=== PATIENT | male | born 1940 | race Caucasian/White ===

== ENCOUNTER 2019-09-28 06:54 | Day surgery (SDC) | payer OTHER ==
[~2019-09-28] VITALS: Ht 165.1 cm; Wt 78.9 kg
[~2019-09-28 06:54] MED LIST: AMLO5TAB15 PO; DOXA4TAB5 PO; LISI-646 PO; SIMV-8 PO; WARF5TAB71 PO
[2019-09-28] MEDS ORDERED: LIDOCAINE 2%HCL (LOCAL ANESTH.) INJ 20ML MDV ONE (07:29)
[2019-09-28] MEDS ORDERED: IODIXANOL 320MG/ML 100ML BTL IV ONE (07:29)
[2019-09-28] MEDS ORDERED: diphenhdrAMINE HCL 50 MG/1 ML VL IV ONE (07:30)
[2019-09-28] MEDS ORDERED: LIDOCAINE VISCOUS 2% 15ML UD PO ONE (07:30)
[2019-09-28] MEDS ORDERED: fentaNYL CITRATE 100 MCG/2 ML VL IV ONE (07:30)
[2019-09-28] MEDS ORDERED: MIDAZOLAM HCL 1MG/1ML-2 ML VIAL IV ONE (07:30)
[2019-09-28] MEDS ORDERED: VERAPAMIL 2.5MG/ML INJ 2ML VIAL IV ONE (08:44)
[2019-09-28] MEDS ORDERED: HEPARIN SODIUM (PORCINE) 5000 UNITS/ML 1ML VIAL ONE (08:44)
[2019-09-28] MEDS ORDERED: ANGIOMAX 250 MG VIAL IV ONE (08:56)
[2019-09-28] MEDS ORDERED: SODIUM CHL 0.9% 0 ML ONE (08:56)
== END 2019-09-28 11:24 | disposition home or self-care (01) ==
LOC: CATH 06:54
PROVIDERS: ATTEND Internal Medicine
DX: I08.0 Rheumatic disorders of both mitral and aortic valves (principal); I48.91 Unspecified atrial fibrillation; I25.10 Atherosclerotic heart disease of native coronary artery without angina pectoris; M19.90 Unspecified osteoarthritis, unspecified site; E78.00 Pure hypercholesterolemia, unspecified; I49.9 Cardiac arrhythmia, unspecified; I10 Essential (primary) hypertension; Z79.01 Long term (current) use of anticoagulants; Z88.0 Allergy status to penicillin; Z79.899 Other long term (current) drug therapy; Z87.891 Personal history of nicotine dependence
CPT/HCPCS: 93312; 93454; C1769; C1894; J1200; J1644; J2250; J3010; Q9967; 99152

== ENCOUNTER 2024-10-19 15:22 | Inpatient (IN) | payer OTHER ==
[~2024-10-19] VITALS: Ht 167.6 cm; Wt 75.1 kg
[~2024-10-19 15:22] MED LIST changes: +AMLO1TAB22 PO; -AMLO5TAB15 PO; -DOXA4TAB5 PO; +DOXA4TAB83 PO; -LISI-646 PO; +LISI20TA56 PO; -SIMV-8 PO; +SIMV20TA20 PO; +WARF-66 PO; -WARF5TAB71 PO
--- NOTE | 2024-10-19 16:04 | ECG ---
[facility] Test Date: 2024-10-19 Test Time: 15:55:06 Pat Name: JEFFREY MORGAN Department: ER Room: 0221T Gender: M It Network Administrator: LIVIA : 1940 Requested By: CARON COLE Order Number: [id number] Reading MD: Judson Wallace Measurements Intervals [place] Rate: 81 P: 0 AK: 0 QRS: 105 QRSD: 139 T: -12 QT: 428 QTc: 497 Interpretive Statements Atrial fibrillation RBBB and LPFB Borderline ST depression, lateral leads Borderline ST elevation, anterior leads Electronically Signed On 10-24-2024 17:11:13 PST by Judson Wallace Please click the below link to view image of tracing.
[2024-10-19 16:53] LABS: Basophils # (auto) 0 10 ^3/uL (0-0.2); Basophils % (auto) 0.1 % (0.0-2.0); Hemoglobin 8.4 g/dL (13.5-17.5); Monocytes # (auto) 0.5 10 ^3/uL (0-1.3); Nucleated Red Blood Cells % 0.1 %
[2024-10-19 16:57] LABS: Eosinophils # (auto) 0 10 ^3/uL (0-0.8); Eosinophils % (auto) 0.3 % (0.0-7.0); Hematocrit 26.4 % (41.0-53.0); Lymphocytes # (auto) 0.5 10 ^3/uL (0.4-5.4); Lymphocytes % (auto) 4.4 % (10.0-50.0); Mean Corpuscular Hemoglobin 29.1 pg (28.0-32.0); Mean Corpuscular Hgb Conc. 31.6 g/dL (32.0-36.0); Mean Corpuscular Volume 92.1 fL (80.0-100.0); Monocytes % (auto) 4.2 % (0.0-12.0); Neutrophils # (auto) 10.1 10 ^3/uL (1.6-8.6); Platelet Count (auto) 244 10^3/uL (140-450); Red Blood Cells 2.87 10^6/uL (4.5-5.90); Red Cell Distribution Width 15.9 % (11.8-14.3); White Blood Cell 11.2 10^3/uL (4.4-10.8)
[2024-10-19 17:07] LABS: Alanine Aminotransferase 32 U/L (7-40); Albumin 3.4 g/dL (3.2-4.8); Anion Gap 12 (5-15); Aspartate Aminotransferase 32 U/L (13-40); BUN/Creatinine Ratio 15.2 (10.0-20.0); Bilirubin, Total 0.7 mg/dL (0.2-1.0); Calcium 8.7 mg/dL (8.7-10.4); Potassium 3.9 mmol/L (3.5-5.1)
[2024-10-19 17:11] LABS: Alkaline Phosphatase 130 U/L (46-116); Blood Urea Nitrogen 46 mg/dL (9-23); Carbon Dioxide 19 mmol/L (20-31); Chloride 116 mmol/L (98-107); Glucose 109 mg/dL (74-106); Sodium 147 mmol/L (136-145)
[2024-10-19 17:12] LABS: Total Protein 5.7 g/dL (5.7-8.2)
--- NOTE | 2024-10-19 18:35 | ED.PDOC ---
History of Present Illness HPI Comments 83-year-old male brought in by son. Patient states he had emergency appendectomy done at in the [facility] by Dr. Burt. Surgery was on 10/10. Patient was discharged home 10/14. Patient states since the surgery when he goes to urinate he only has dribble urination but also has a urine coming out of the small puncture hole just below his abdomen. Had home health nurse come out today do wound check and they stated he needed to come into the emergency department because the discharge seem to be a urine. Chief Complaint: Wound Check Time Seen by MD: 15:38 Primary Care Provider: NEDA Rosenberg Notes: Nurses Notes Allergies: Coded Allergies: Penicillins (Verified Allergy, Severe, 09/25/19) Home Meds Reported Medications Lisinopril (Lisinopril) 20 Mg Tab, 20 MG PO DAILY for 30 Days, MG 09/25/19 Amlodipine Besylate (Amlodipine Besylate) 5 Mg Tab, 5 MG PO DAILY for 30 Days, MG 09/25/19 Warfarin Sodium (Warfarin Sodium) 5 Mg Tab, 5 MG PO DAILY for 30 Days, MG 09/25/19 Simvastatin (Simvastatin) 20 Mg Tab, 20 MG PO DAILY for 30 Days 09/25/19 Doxazosin Mesylate (Doxazosin Mesylate) 4 Mg Tab, 4 MG PO DAILY, TAB 09/25/19 Information Source: Patient Mode of Arrival: Wheelchair Physical Exam General Appearance: No Apparent Distress, Normal HEENT: Normal ENT Inspection, Pharynx Normal, TMs Normal Neck: Full Range of Motion, Non-Tender, Normal, Normal Inspection Respiratory: Chest Non-Tender, Lungs Clear, No Accessory Muscle Use, No Respiratory Distress, Normal Breath Sounds Cardiovascular: No Edema, No JVD, No Murmur, No Gallop, Normal Peripheral Pulses, Regular Rate/Rhythm Breast Exam: Deferred Gastrointestinal: No Organomegaly, Non Tender, No Pulsatile Mass, Normal Bowel Sounds, Soft Genitalia: Deferred Pelvic: Deferred Rectal: Deferred Extremities: No calf tenderness, Normal capillary refill, Normal inspection, Normal range of motion, Non-tender, No pedal edema Musculoskeletal : Apperance: Normal Neurologic: Alert, web analyst II-XII nml as Tested, No Motor Deficits, Normal Affect, Normal Mood, No Sensory Deficits Cerebellar Function: Normal Reflexes: Normal Skin: Dry, Normal Color, Warm, Wounds (Laparoscopic puncture wound noted on the right lower quadrant abdomen/suprapubic area. Does not appear to have clear yellow/urine discharge.) Lymphatic: No Adenopathy Was a procedure done? Was a procedure done?: No Differential Dx Considerations may include: Postop complications X-Ray, Labs, Meds, VS Vital Signs Date Time Temp Pulse Resp B/P (MAP) Pulse Ox O2 Delivery O2 Flow Rate FiO2 10/19/24 17:47 98.0 71 18 136/82 (100) 99 98.0 10/19/24 15:55 81 10/19/24 15:40 98.4 67 18 116/42 (66) 97 Lab Test 10/19/24 16:19 Range/Units White Blood Count 11.2 H 4.4-10.8 10^3/uL Red Blood Count 2.87 L 4.5-5.90 10^6/uL Hemoglobin 8.4 L 13.5-17.5 g/dL Hematocrit 26.4 L 41.0-53.0 % Mean Corpuscular Volume 92.1 80.0-100.0 fL Mean Corpuscular Hemoglobin 29.1 28.0-32.0 pg Mean Corpuscular Hemoglobin Concent 31.6 L 32.0-36.0 g/dL Red Cell Distribution Width 15.9 H 11.8-14.3 % Platelet Count 244 140-450 10^3/uL Mean Platelet Volume 8.6 6.9-10.8 fL Neutrophils (%) (Auto) 91.0 H 37.0-80.0 % Lymphocytes (%) (Auto) 4.4 L 10.0-50.0 % Monocytes (%) (Auto) 4.2 0.0-12.0 % Eosinophils (%) (Auto) 0.3 0.0-7.0 % Basophils (%) (Auto) 0.1 0.0-2.0 % Neutrophils # (Auto) 10.1 H 1.6-8.6 10 ^3/uL Lymphocytes # (Auto) 0.5 0.4-5.4 10 ^3/uL Monocytes # (Auto) 0.5 0-1.3 10 ^3/uL Eosinophils # (Auto) 0 0-0.8 10 ^3/uL Basophils # (Auto) 0 0-0.2 10 ^3/uL Nucleated Red Blood Cells 0.1 % Sodium Level 147 H 136-145 mmol/L Potassium Level 3.9 3.5-5.1 mmol/L Chloride Level 116 H 98-107 mmol/L Carbon Dioxide Level 19 L 20-31 mmol/L Anion Gap 12 5-15 Blood Urea Nitrogen 46 H 9-23 mg/dL Creatinine 3.02 H 0.700-1.30 mg/dL Glomerular Filtration Rate Calc 20 >90 mL/min BUN/Creatinine Ratio 15.2 10.0-20.0 Serum Glucose 109 H 74-106 mg/dL Calcium Level 8.7 8.7-10.4 mg/dL Total Bilirubin 0.7 0.2-1.0 mg/dL Aspartate Amino Transferase (AST) 32 13-40 U/L Alanine Aminotransferase (ALT) 32 7-40 U/L Alkaline Phosphatase 130 H 46-116 U/L Total Protein 5.7 5.7-8.2 g/dL Albumin 3.4 3.2-4.8 g/dL X-Ray, Labs, Meds, VS Comment Spoke with Dr. Burt, general surgeon, advised to situation, CBC CMP place CT abdomen noncontrast place Dr. Burt states he was spoke with urologist Dr. Reyes, urology consult was placed, patient will be admitted for observation and evaluation by Dr. Reyes tomorrow morning. Moreno catheter to be inserted. Time of 1ST Reevaluation: 18:33 Reevaluation 1ST: Unchanged Patient Education/Counseling: Diagnosis, Treatment Family Education/Counseling: Diagnosis, Treatment Departure 1 Departure Time of Disposition: 18:33 Impression: Primary Impression: Postoperative complication Qualified Codes: N99.89 - Other postprocedural complications and disorders of genitourinary system Disposition: 09 ADMITTED INPATIENT Condition: Fair Critical Care Note Critical Care Time?: No Stability Stability form required: No Heart Score Heart Score: Heart Score Response (Comments) Value History N/A 0 EKG N/A 0 Age N/A 0 Risk Factors N/A 0 Troponin N/A 0 Total 0 CARON COLE Oct 19, 2024 18:35
--- NOTE | 2024-10-19 19:09 | DVH ---
Procedure: CT CT AB PEL WO CON-NO ORAL OR IV 10/19/2024 06:04 PM Indication: post op complications. Status post appendectomy on 10/10/2024 Comparison Study: None Technique: Axial images were obtained and reformatted in coronal and sagittal planes. All CT scans at this medical facility are performed using dose modulation techniques as appropriate t o a performed exam including the following: Automated exposure control was utilized; adjustment of th e MA and/or KV according to patient size; and use of iterative reconstruction technique. CT Dose: CTDI volume is 15 mGy. Dose-length product is 147 mGy*cm FINDINGS: Lower Chest: Small left pleural effusion with mild adjacent compressive atelectasis. Moderate cardiom egaly. Evidence of anemia. An artificial aortic valve is seen. Hepatobiliary: Multiple hepatic cysts measuring up to 19 cm. Intrahepatic ductal dilatation seen in t he left lobe. Slightly nodular liver contour. Few subcentimeter gallstones are seen. No gallbladder w all edema. Spleen: Unremarkable. Pancreas: Unremarkable. Adrenal Glands: Unremarkable. tract: The kidneys are normal in size bilaterally without nephrolithiasis. Multiple bilateral pavan al cysts are seen measuring up to 2.5 cm. Mild bilateral hydronephrosis and left proximal hydroureter . Markedly distended bladder extending to level of umbilicus. GI tract: The stomach is grossly normal in appearance. No evidence of small bowel obstruction. The la rge bowel is unremarkable. The appendix is surgically absent. Lymphatics: No mesenteric, retroperitoneal or periportal lymphadenopathy. Vasculature: Aorta is normal in caliber. Scattered calcified plaques are noted. Pelvic Organs: Severe prostatic hyperplasia, 7.3 cm transverse. Bones/soft tissues: No acute abnormality. Degenerative changes of the lumbar spine noted. Small fat-c ontaining umbilical hernia. Small to moderate amount of air in the subcutaneous tissues of the lower abdomen and pelvis extending to the bilateral inguinal canals. Orthopedic hardware in the right proxi mal femur. Moderate subcutaneous edema in posterior abdominal wall. Other: None. IMPRESSION: 1. Small to moderate amount of soft tissue air in the subcutaneous tissues of the lower abdominal wal l, pelvic wall extending to bilateral inguinal canals pulmonary postsurgical in nature. Recommend cli nical correlation to rule out gas producing infection. No drainable collection is noted. 2. The appendix is surgically absent. No drainable fluid collection seen in the right lower quadrant. Mild mesenteric lymphadenopathy in the right lower quadrant. 3. Severe prostatic hyperplasia. 4. Markedly distended urinary bladder likely due to prostatic hyperplasia. There is bilateral modera te hydronephrosis that could be related to vesicoureteral reflux. 5. Severe intrahepatic ductal dilatation in the left hepatic lobe concerning for an obstructing proce ss. Further evaluation with MRCP recommended. 6. Cholelithiasis. No signs of cholecystitis. 7. CHF small left pleural effusion.
[2024-10-19 20:12] VITALS: PULSE 77; RESP 16; O2SAT 96
[2024-10-19] MEDS: LORazepam 2MG/ML-1ML VIAL IV ONE (20:21)
[2024-10-19] MEDS: cefTRIAXone 1GM/50ML D5W 50 ML IV ONE (20:26)
[2024-10-19] MEDS: LIDOCAINE 2% JELLY 11ml (GLYDO) UR ONE (21:45)
[2024-10-19] MEDS ORDERED: HYDROcodone-ACET 5/325MG TAB PO PRN (22:00)
[2024-10-19] MEDS ORDERED: ONDANSETRON HCL 4 MG/2 ML VIAL IV PRN (22:00)
[2024-10-19] MEDS ORDERED: ACETAMINOPHEN 325 MG TAB PO PRN (22:00)
[2024-10-19] MEDS ORDERED: MORPHINE SULFATE INJ 2 MG/ml SYRG IV PRN ×2 (22:00)
[2024-10-19] MEDS ORDERED: NITROGLYCERIN 0.4 MG SL TAB SL PRN (22:00)
[2024-10-20] VITALS (8 sets, daily range): BP systolic 128–141; BP diastolic 61–86; PULSE 75–89; RESP 16–19; TEMP 98.1–98.7; O2SAT 93–97
--- NOTE | 2024-10-20 01:04 | DVHHP2 ---
LILLIAM LIANG BAY STOCKER 10/20/24 0104: History of Present Illness Reason for Visit: Wound check History of Present Illness 83-year-old male with past medical history of a fib, Cardiac valve replacement, Present to the hospital For a wound check. Patient recently underwent emerging appendectomy on 10/10 And discharge from [facility] [place] [facility] 10/14. Since discharge patient has had difficulty Emptying bladder. Patient seen by home health nurse yesterday Was advised to follow up with surgeon and go to the emergency department for abnormal drainage from incision. At this time the patient is endorsing Lower abdominal discomfort. Denies fevers, chills,Shortness of breath, chest pain, nausea, vomiting. Cardiovascular: AFIB, HTN, hyperipidemia, valve insufficiency Smoke: No ALCOHOL: none Drugs: None Lives: with Family Review of Systems Constitutional: No: Fever, Chills, Sweats, Weakness, Malaise, Other Eyes: No: Pain, Vision change, Conjunctivae inflammation, Eyelid inflammation, Other, Redness ENT: No: Ear pain, Ear discharge, Nose pain, Nose discharge, Nose congestion, Mouth pain, Mouth swelling, Throat pain, Throat swelling, Other Respiratory: No: Cough, Dry, Shortness of breath, SOB with excertion, Wheezing, Hemoptysis, Pleuritic Pain, Sputum, Wheezing, Other Cardiovascular: No: Chest Pain, Palpitations, Orthopnea, Paroxysmal Noc. Dyspnea, Edema, Lt Headedness, Other Gastrointestinal: Abdominal Pain; No: Nausea, Vomiting, Diarrhea, Constipation, Melena, Hematochezia, Other Genitourinary: No Dysuria, No Frequency, No Incontinence, No Hematuria; Retention; No Other Musculoskeletal: No: other, neck pain, shoulder pain, arm pain, back pain, hand pain, leg pain, foot pain Skin: Other (Post surgical incisions); No: Rash, Lesions, Jaundice, Bruising Neurological: No: Weakness, Numbness, Incoordination, Change in speech, Confusion, Seizures, Other Allergies: Coded Allergies: Penicillins (Verified Allergy, Severe, 09/25/19) Medications Current Medications Medications Dose Ordered Sig/Shawna Route Start Time Stop Time Status Last Admin Dose Admin Acetaminophen 650 mg Q6HP PRN PO 10/19/24 22:00 Acetaminophen/ Hydrocodone Bitart 1 tab Q6HPRN PRN PO 10/19/24 22:00 Ondansetron HCl 4 mg Q4HP PRN IV 10/19/24 22:00 Morphine Sulfate 2 mg Q4HPRN PRN IV 10/19/24 22:00 Nitroglycerin 0.4 mg Q5MINP PRN SL 10/19/24 22:00 Morphine Sulfate 2 mg Q30M PRN IV 10/19/24 22:00 Metoprolol Succinate 25 mg DAILY PO 10/20/24 10:00 Exam Vital Signs Vital Signs Date Time Temp Pulse Resp B/P (MAP) Pulse Ox O2 Delivery O2 Flow Rate FiO2 10/19/24 20:12 77 16 96 Room Air* 0 21 10/19/24 20:03 98.4 136/87 (103) 98.4 General Appearance: Alert, Oriented X3, Cooperative, moderate distress HEENT: Atraumatic, PERRLA, EOMI Respiratory: Clear to auscultation, Normal air movement Cardiovascular: Regular rate, Normal S1, Normal S2 Abdominal: Normal bowel sounds, Soft, No tenderness Extremities: No cyanosis, No edema Skin: No rashes Neuro: Normal speech, Strength at 5/5 X4 ext Psych/Mental Status: Mental status NL, Mood NL Labs/Xrays Labs Test 10/19/24 16:19 Range/Units White Blood Count 11.2 H 4.4-10.8 10^3/uL Red Blood Count 2.87 L 4.5-5.90 10^6/uL Hemoglobin 8.4 L 13.5-17.5 g/dL Hematocrit 26.4 L 41.0-53.0 % Mean Corpuscular Volume 92.1 80.0-100.0 fL Mean Corpuscular Hemoglobin 29.1 28.0-32.0 pg Mean Corpuscular Hemoglobin Concent 31.6 L 32.0-36.0 g/dL Red Cell Distribution Width 15.9 H 11.8-14.3 % Platelet Count 244 140-450 10^3/uL Mean Platelet Volume 8.6 6.9-10.8 fL Neutrophils (%) (Auto) 91.0 H 37.0-80.0 % Lymphocytes (%) (Auto) 4.4 L 10.0-50.0 % Monocytes (%) (Auto) 4.2 0.0-12.0 % Eosinophils (%) (Auto) 0.3 0.0-7.0 % Basophils (%) (Auto) 0.1 0.0-2.0 % Neutrophils # (Auto) 10.1 H 1.6-8.6 10 ^3/uL Lymphocytes # (Auto) 0.5 0.4-5.4 10 ^3/uL Monocytes # (Auto) 0.5 0-1.3 10 ^3/uL Eosinophils # (Auto) 0 0-0.8 10 ^3/uL Basophils # (Auto) 0 0-0.2 10 ^3/uL Nucleated Red Blood Cells 0.1 % Sodium Level 147 H 136-145 mmol/L Potassium Level 3.9 3.5-5.1 mmol/L Chloride Level 116 H 98-107 mmol/L Carbon Dioxide Level 19 L 20-31 mmol/L Anion Gap 12 5-15 Blood Urea Nitrogen 46 H 9-23 mg/dL Creatinine 3.02 H 0.700-1.30 mg/dL Glomerular Filtration Rate Calc 20 >90 mL/min BUN/Creatinine Ratio 15.2 10.0-20.0 Serum Glucose 109 H 74-106 mg/dL Calcium Level 8.7 8.7-10.4 mg/dL Total Bilirubin 0.7 0.2-1.0 mg/dL Aspartate Amino Transferase (AST) 32 13-40 U/L Alanine Aminotransferase (ALT) 32 7-40 U/L Alkaline Phosphatase 130 H 46-116 U/L Total Protein 5.7 5.7-8.2 g/dL Albumin 3.4 3.2-4.8 g/dL Assessment/Plan Assessment/Plan Urinary retention secondary to severe prostatic hyperplasia Bilateral moderate hydronephrosis EDWAR on CKD S/p appendectomy 10/10/24 Afib, chronic controlled Plan Admit to telemetry General surgeon consult. Urology consult Nephrology consult. Monitor BMP. Correct electrolytes as needed. needed analgesia / antiemetics Continue home medications. GI ppx protonix / DVT ppx scd Plan discussed with: Patient My Orders Orders - LILLIAM LIANG NP Procedure Category Date Status Time Admit ADMIT 10/19/24 Transmitted 21:50 Code Status CODE 10/19/24 Transmitted 21:50 Vital Signs TYLER 10/19/24 In Process 21:50 Review Orders With TYLER 10/19/24 In Process Adm. 21:50 Encourage Activity As TYLER 10/19/24 In Process Tolerate 21:50 Npo (Nothing By DIET 10/20/24 Transmitted Mouth) Diet Breakfast Oxygen By Face Mask RT 10/19/24 Transmitted 21:50 Acetaminophen Tablet PHA 10/19/24 In Process (Tylenol Tablet) 22:00 Notify Of Changes TYLER 10/19/24 In Process From Base 21:50 Advance Directive TYLER 10/19/24 In Process 21:50 Basic Metabolic Panel LAB 10/20/24 Logged 05:00 Basic Metabolic Panel LAB 10/21/24 Verified 05:00 Basic Metabolic Panel LAB 10/22/24 Verified 05:00 Basic Metabolic Panel LAB 10/23/24 Verified 05:00 Basic Metabolic Panel LAB 10/24/24 Verified 05:00 Complete Blood Count LAB 10/20/24 Logged 05:00 Complete Blood Count LAB 10/21/24 Verified 05:00 Complete Blood Count LAB 10/22/24 Verified 05:00 Complete Blood Count LAB 10/23/24 Verified 05:00 Complete Blood Count LAB 10/24/24 Verified 05:00 Patient Condition ORDERS 10/19/24 Transmitted 21:50 Allergies TYLER 10/19/24 In Process 21:50 Hydrocodone-Acet PHA 10/19/24 In Process 5/325mg Tab (Lima 22:00 Ondansetron Hcl PHA 10/19/24 In Process (Zofran) 22:00 Morphine Sulfate PHA 10/19/24 In Process Injection 22:00 Nitroglycerin PHA 10/19/24 In Process Sublingual (Ntrostat 22:00 Morphine Sulfate PHA 10/19/24 In Process Injection 22:00 Stat Ekg For Chest TYLER 10/19/24 In Process Pain 21:50 Notify Of Changes TYLER 10/19/24 In Process From Base 21:50 Associate Publisher For TYLER 10/19/24 In Process 24 Hours 21:50 Emergency Dysrhythmia TYLER 10/19/24 In Process Protocol 21:50 Rhythm Strips Once TYLER 10/19/24 In Process Every Shift 21:50 Oxygen By Nasal RT 10/19/24 Transmitted Cannula 21:50 * Urology Consult CONS 10/19/24 Transmitted 21:50 PTPTT LAB 10/20/24 Logged 04:00 Metoprolol Xl PHA 10/20/24 In Process Succinate (Toprol Xl) 10:00 Date of Service: Oct 20, 2024 Billing Provider: TEE BUSTOS MD Common Visit Codes: NOT BILLABLE TEE BUSTOS MD 10/20/24 1252: Review of Systems Allergies: Coded Allergies: Penicillins (Verified Allergy, Severe, 09/25/19) Assessment/Plan Assessment/Plan Patient's chart is reviewed and discussed with the nurse practitioner and general surgeon. Patient is seen evaluated and admitted by nurse practitioner this morning. I agree with his evaluation, documentation, assessment and care plan as outlined. Plan discussed with: Patient, LILLIAM Fuller BAY STOCKER Oct 20, 2024 01:04 TEE BUSTOS MD Oct 20, 2024 12:52
[2024-10-20] MEDS ORDERED: MET25T PO (03:34)
--- NOTE | 2024-10-20 05:50 | DVHINCON2 ---
Date of service: Oct 20, 2024 History of Present Illness 83 yo M office pt of mine hx of TAVR, hx of chronic afib, admitted for wound and inability to urinate. kay in place and pt feels well now Past Medical History reviewed Family History: Cerebrovascular accident (CVA) G8 FATHER, Hypertension G8 FATHER, Allergies: Coded Allergies: Penicillins (Verified Allergy, Severe, 09/25/19) Home Meds Reported Medications Metoprolol Tartrate (Lopressor) 25 Mg Tb, 1 TAB PO DAILY for FOR SBP >115 10/20/24 Lisinopril (Lisinopril) 20 Mg Tab, 20 MG PO DAILY for 30 Days, MG 09/25/19 Amlodipine Besylate (Amlodipine Besylate) 5 Mg Tab, 10 MG PO DAILY for 30 Days, MG 09/25/19 Warfarin Sodium (Warfarin Sodium) 5 Mg Tab, 5 MG PO DAILY for 30 Days, MG 09/25/19 Simvastatin (Simvastatin) 20 Mg Tab, 20 MG PO DAILY for 30 Days 09/25/19 Doxazosin Mesylate (Doxazosin Mesylate) 4 Mg Tab, 4 MG PO DAILY, TAB 09/25/19 Current Medications Current Medications Medications (Trade) Dose Ordered Sig/Shawna Route PRN Reason Start Time Stop Time Status Last Admin Acetaminophen (Tylenol Tablet) 650 mg Q6HP PRN PO PAIN SCALE 1-3 OR TEMP>100.4 10/19/24 22:00 Acetaminophen/ Hydrocodone Bitart (Vale 5/325MG Tab) 1 tab Q6HPRN PRN PO MODERATE PAIN (4-6 PAIN SCALE) 10/19/24 22:00 Ondansetron HCl (Zofran) 4 mg Q4HP PRN IV NAUSEA / VOMITING 10/19/24 22:00 Morphine Sulfate 2 mg Q4HPRN PRN IV SEVERE PAIN (7-10 PAIN SCALE) 10/19/24 22:00 Nitroglycerin (Ntrostat Sublingual) 0.4 mg Q5MINP PRN SL FOR CHEST PAIN 10/19/24 22:00 Morphine Sulfate 2 mg Q30M PRN IV FOR CHEST PAIN 10/19/24 22:00 Metoprolol Succinate (Toprol Xl) 25 mg DAILY PO 10/20/24 10:00 10/20/24 01:10 DC Metoprolol Tartrate (Lopressor Tablet) 25 mg DAILY PO 10/20/24 10:00 Review of Systems 10 pt ros otherwise negative Vital Signs Vital Signs Date Time Temp Pulse Resp B/P (MAP) Pulse Ox O2 Delivery O2 Flow Rate FiO2 10/20/24 03:13 81 16 Room Air* 0 21 10/20/24 02:25 99 10/20/24 02:22 97.4 126/61 (82) 97.4 Physical Exam nad s1 s2 irregular ctab soft nt/ wound/ bandaged trivia ledema Labs/Diagnostic Data Labs Test 10/19/24 16:19 Range/Units White Blood Count 11.2 H 4.4-10.8 10^3/uL Red Blood Count 2.87 L 4.5-5.90 10^6/uL Hemoglobin 8.4 L 13.5-17.5 g/dL Hematocrit 26.4 L 41.0-53.0 % Mean Corpuscular Volume 92.1 80.0-100.0 fL Mean Corpuscular Hemoglobin 29.1 28.0-32.0 pg Mean Corpuscular Hemoglobin Concent 31.6 L 32.0-36.0 g/dL Red Cell Distribution Width 15.9 H 11.8-14.3 % Platelet Count 244 140-450 10^3/uL Mean Platelet Volume 8.6 6.9-10.8 fL Neutrophils (%) (Auto) 91.0 H 37.0-80.0 % Lymphocytes (%) (Auto) 4.4 L 10.0-50.0 % Monocytes (%) (Auto) 4.2 0.0-12.0 % Eosinophils (%) (Auto) 0.3 0.0-7.0 % Basophils (%) (Auto) 0.1 0.0-2.0 % Neutrophils # (Auto) 10.1 H 1.6-8.6 10 ^3/uL Lymphocytes # (Auto) 0.5 0.4-5.4 10 ^3/uL Monocytes # (Auto) 0.5 0-1.3 10 ^3/uL Eosinophils # (Auto) 0 0-0.8 10 ^3/uL Basophils # (Auto) 0 0-0.2 10 ^3/uL Nucleated Red Blood Cells 0.1 % Sodium Level 147 H 136-145 mmol/L Potassium Level 3.9 3.5-5.1 mmol/L Chloride Level 116 H 98-107 mmol/L Carbon Dioxide Level 19 L 20-31 mmol/L Anion Gap 12 5-15 Blood Urea Nitrogen 46 H 9-23 mg/dL Creatinine 3.02 H 0.700-1.30 mg/dL Glomerular Filtration Rate Calc 20 >90 mL/min BUN/Creatinine Ratio 15.2 10.0-20.0 Serum Glucose 109 H 74-106 mg/dL Calcium Level 8.7 8.7-10.4 mg/dL Total Bilirubin 0.7 0.2-1.0 mg/dL Aspartate Amino Transferase (AST) 32 13-40 U/L Alanine Aminotransferase (ALT) 32 7-40 U/L Alkaline Phosphatase 130 H 46-116 U/L Total Protein 5.7 5.7-8.2 g/dL Albumin 3.4 3.2-4.8 g/dL Assessment afib hx of tavr obesity postop appy urinary retention /bph Plan/Recommendation cv stable pt had recent cv testing in office resume home meds fu field consultant recs Plan discussed with: Patient AINSLEY LOPEZ MD Oct 20, 2024 05:50
[2024-10-20 06:42] LABS: Potassium 3.8 mmol/L (3.5-5.1)
[2024-10-20 06:43] LABS: Anion Gap 12 (5-15); Calcium 8.7 mg/dL (8.7-10.4)
[2024-10-20 06:48] LABS: BUN/Creatinine Ratio 15.7 (10.0-20.0); Glucose 92 mg/dL (74-106)
[2024-10-20 06:55] LABS: Blood Urea Nitrogen 33 mg/dL (9-23); Carbon Dioxide 19 mmol/L (20-31); Chloride 118 mmol/L (98-107); Sodium 149 mmol/L (136-145)
[2024-10-20 07:00] LABS: INR 1.15 (0.9-1.15); Partial Thromboplastin Time 30.3 SEC (24.5-34.5)
[2024-10-20 07:07] LABS: Basophils # (auto) 0 10 ^3/uL (0-0.2); Basophils % (auto) 0.2 % (0.0-2.0); Eosinophils # (auto) 0.1 10 ^3/uL (0-0.8)
[2024-10-20 07:12] LABS: Lymphocytes # (auto) 0.5 10 ^3/uL (0.4-5.4); Lymphocytes % (auto) 4.9 % (10.0-50.0); Mean Corpuscular Hemoglobin 30.4 pg (28.0-32.0); Mean Corpuscular Hgb Conc. 33.3 g/dL (32.0-36.0); Mean Corpuscular Volume 91.2 fL (80.0-100.0); Monocytes # (auto) 0.6 10 ^3/uL (0-1.3); Monocytes % (auto) 5.9 % (0.0-12.0); Neutrophils # (auto) 9.3 10 ^3/uL (1.6-8.6); Nucleated Red Blood Cells % 0.1 %; Platelet Count (auto) 228 10^3/uL (140-450); Red Blood Cells 2.63 10^6/uL (4.5-5.90); Red Cell Distribution Width 15.7 % (11.8-14.3); White Blood Cell 10.5 10^3/uL (4.4-10.8)
[2024-10-20] MEDS ORDERED: IOTHALAMATE MEGLUMINE INJ 250ML BOT UR ONE (08:59)
--- NOTE | 2024-10-20 09:16 | DVHINCON2 ---
Date of service: Oct 20, 2024 History of Present Illness 83 yo male who underwent lap appy last week emergently for acute appendicitis. The patient had some bleeding from kay and was seen by urologist. Pt had CBI and urine cleared. He was tolerating diet, having bowel movement and was dc home. Yesterday home nurses went for dressing change, found to have clear fluid draining from suprapubic incision. Pt was brought into ER. CT scan revealed massively distended bladder due to obstructing from markedly enlarged prostate, elevated creatinine. Ct scan did not show any free fluid or intraperitoneal fluid, surgical site did not have any abnormalities. Pt has not had any n/v/f/c. He has been passing flatus and having bm. Pt complained of distension and pressure in lower abdomen. Past Medical History valve replacement htn a fib Past Surgical History lap appy tavr Family History: Cerebrovascular accident (CVA) G8 FATHER, Hypertension G8 FATHER, Allergies: Coded Allergies: Penicillins (Verified Allergy, Severe, 09/25/19) Home Meds Reported Medications Metoprolol Tartrate (Lopressor) 25 Mg Tb, 1 TAB PO DAILY for FOR SBP >115 10/20/24 Lisinopril (Lisinopril) 20 Mg Tab, 20 MG PO DAILY for 30 Days, MG 09/25/19 Amlodipine Besylate (Amlodipine Besylate) 5 Mg Tab, 10 MG PO DAILY for 30 Days, MG 09/25/19 Warfarin Sodium (Warfarin Sodium) 5 Mg Tab, 5 MG PO DAILY for 30 Days, MG 09/25/19 Simvastatin (Simvastatin) 20 Mg Tab, 20 MG PO DAILY for 30 Days 09/25/19 Doxazosin Mesylate (Doxazosin Mesylate) 4 Mg Tab, 4 MG PO DAILY, TAB 09/25/19 Current Medications Current Medications Medications (Trade) Dose Ordered Sig/Shawna Route PRN Reason Start Time Stop Time Status Last Admin Acetaminophen (Tylenol Tablet) 650 mg Q6HP PRN PO PAIN SCALE 1-3 OR TEMP>100.4 10/19/24 22:00 Acetaminophen/ Hydrocodone Bitart (Watkins 5/325MG Tab) 1 tab Q6HPRN PRN PO MODERATE PAIN (4-6 PAIN SCALE) 10/19/24 22:00 Ondansetron HCl (Zofran) 4 mg Q4HP PRN IV NAUSEA / VOMITING 10/19/24 22:00 Morphine Sulfate 2 mg Q4HPRN PRN IV SEVERE PAIN (7-10 PAIN SCALE) 10/19/24 22:00 Nitroglycerin (Ntrostat Sublingual) 0.4 mg Q5MINP PRN SL FOR CHEST PAIN 10/19/24 22:00 Morphine Sulfate 2 mg Q30M PRN IV FOR CHEST PAIN 10/19/24 22:00 Metoprolol Succinate (Toprol Xl) 25 mg DAILY PO 10/20/24 10:00 10/20/24 01:10 DC Metoprolol Tartrate (Lopressor Tablet) 25 mg DAILY PO 10/20/24 10:00 Ceftriaxone Sodium 50 ml @ 100 mls/hr Q24H IV 10/20/24 21:00 Review of Systems neg unless mentioned in hpi Vital Signs Vital Signs Date Time Temp Pulse Resp B/P (MAP) Pulse Ox O2 Delivery O2 Flow Rate FiO2 10/20/24 05:00 98.1 80 18 131/61 (84) 97 98.1 10/20/24 03:13 Room Air* 0 21 Physical Exam gen; aaox3,nad abd; soft nd suprapubic wound clean, dry, no erythema, other incisions clean dry ext; no edema Labs/Diagnostic Data Labs Test 10/20/24 05:48 10/19/24 16:19 Range/Units White Blood Count 10.5 4.4-10.8 10^3/uL Red Blood Count 2.63 L 4.5-5.90 10^6/uL Hemoglobin 8.0 L 13.5-17.5 g/dL Hematocrit 24.0 L 41.0-53.0 % Mean Corpuscular Volume 91.2 80.0-100.0 fL Mean Corpuscular Hemoglobin 30.4 28.0-32.0 pg Mean Corpuscular Hemoglobin Concent 33.3 32.0-36.0 g/dL Red Cell Distribution Width 15.7 H 11.8-14.3 % Platelet Count 228 140-450 10^3/uL Mean Platelet Volume 8.6 6.9-10.8 fL Neutrophils (%) (Auto) 88.0 H 37.0-80.0 % Lymphocytes (%) (Auto) 4.9 L 10.0-50.0 % Monocytes (%) (Auto) 5.9 0.0-12.0 % Eosinophils (%) (Auto) 1.0 0.0-7.0 % Basophils (%) (Auto) 0.2 0.0-2.0 % Neutrophils # (Auto) 9.3 H 1.6-8.6 10 ^3/uL Lymphocytes # (Auto) 0.5 0.4-5.4 10 ^3/uL Monocytes # (Auto) 0.6 0-1.3 10 ^3/uL Eosinophils # (Auto) 0.1 0-0.8 10 ^3/uL Basophils # (Auto) 0 0-0.2 10 ^3/uL Nucleated Red Blood Cells 0.1 % Prothrombin Time 12.0 H 9.3-11.8 sec Prothrombin Time INR 1.15 0.9-1.15 Activated Partial Thromboplast Time 30.3 24.5-34.5 SEC Sodium Level 149 H 136-145 mmol/L Potassium Level 3.8 3.5-5.1 mmol/L Chloride Level 118 H 98-107 mmol/L Carbon Dioxide Level 19 L 20-31 mmol/L Anion Gap 12 5-15 Blood Urea Nitrogen 33 #H 9-23 mg/dL Creatinine 2.10 H 0.700-1.30 mg/dL Glomerular Filtration Rate Calc 30 >90 mL/min BUN/Creatinine Ratio 15.7 10.0-20.0 Serum Glucose 92 74-106 mg/dL Calcium Level 8.7 8.7-10.4 mg/dL Total Bilirubin 0.7 0.2-1.0 mg/dL Aspartate Amino Transferase (AST) 32 13-40 U/L Alanine Aminotransferase (ALT) 32 7-40 U/L Alkaline Phosphatase 130 H 46-116 U/L Total Protein 5.7 5.7-8.2 g/dL Albumin 3.4 3.2-4.8 g/dL Assessment 83 yo male s/p lap appy, urinary retention due to prostamegaly, drainage from suprapubic wound Plan/Recommendation npo ivf iv abx urology consult dr calle cystogram kay for strict ins and outs, will need to stay in until further recs further recs to follow Plan discussed with: Patient URENAMOSHE MD Oct 20, 2024 09:16
--- NOTE | 2024-10-20 09:29 | DVHINCON2 ---
Date of service: Oct 20, 2024 Referring Physician hospitalist Reason for Consultation urinary retention History of Present Illness History Source: Patient, RN Notes, MD Notes Exam Limitations: No limitations HPI 83 yo male s/p appendectomy 10/10/24 with urinary retention since 10/14/24. Kay in place creatinine improving Home Meds Reported Medications Metoprolol Tartrate (Lopressor) 25 Mg Tb, 1 TAB PO DAILY for FOR SBP >115 10/20/24 Lisinopril (Lisinopril) 20 Mg Tab, 20 MG PO DAILY for 30 Days, MG 09/25/19 Amlodipine Besylate (Amlodipine Besylate) 5 Mg Tab, 10 MG PO DAILY for 30 Days, MG 09/25/19 Warfarin Sodium (Warfarin Sodium) 5 Mg Tab, 5 MG PO DAILY for 30 Days, MG 09/25/19 Simvastatin (Simvastatin) 20 Mg Tab, 20 MG PO DAILY for 30 Days 09/25/19 Doxazosin Mesylate (Doxazosin Mesylate) 4 Mg Tab, 4 MG PO DAILY, TAB 09/25/19 Past Medical History Patient Family History: Cerebrovascular accident (CVA) G8 FATHER, Hypertension G8 FATHER, H&P Exam Vital Signs Vital Signs Date Time Temp Pulse Resp B/P (MAP) Pulse Ox O2 Delivery O2 Flow Rate FiO2 10/20/24 09:00 98.7 82 16 134/70 (91) 96 98.7 10/20/24 03:13 Room Air* 0 21 Labs/Xrays Labs Test 10/20/24 05:48 10/19/24 16:19 Range/Units White Blood Count 10.5 4.4-10.8 10^3/uL Red Blood Count 2.63 L 4.5-5.90 10^6/uL Hemoglobin 8.0 L 13.5-17.5 g/dL Hematocrit 24.0 L 41.0-53.0 % Mean Corpuscular Volume 91.2 80.0-100.0 fL Mean Corpuscular Hemoglobin 30.4 28.0-32.0 pg Mean Corpuscular Hemoglobin Concent 33.3 32.0-36.0 g/dL Red Cell Distribution Width 15.7 H 11.8-14.3 % Platelet Count 228 140-450 10^3/uL Mean Platelet Volume 8.6 6.9-10.8 fL Neutrophils (%) (Auto) 88.0 H 37.0-80.0 % Lymphocytes (%) (Auto) 4.9 L 10.0-50.0 % Monocytes (%) (Auto) 5.9 0.0-12.0 % Eosinophils (%) (Auto) 1.0 0.0-7.0 % Basophils (%) (Auto) 0.2 0.0-2.0 % Neutrophils # (Auto) 9.3 H 1.6-8.6 10 ^3/uL Lymphocytes # (Auto) 0.5 0.4-5.4 10 ^3/uL Monocytes # (Auto) 0.6 0-1.3 10 ^3/uL Eosinophils # (Auto) 0.1 0-0.8 10 ^3/uL Basophils # (Auto) 0 0-0.2 10 ^3/uL Nucleated Red Blood Cells 0.1 % Prothrombin Time 12.0 H 9.3-11.8 sec Prothrombin Time INR 1.15 0.9-1.15 Activated Partial Thromboplast Time 30.3 24.5-34.5 SEC Sodium Level 149 H 136-145 mmol/L Potassium Level 3.8 3.5-5.1 mmol/L Chloride Level 118 H 98-107 mmol/L Carbon Dioxide Level 19 L 20-31 mmol/L Anion Gap 12 5-15 Blood Urea Nitrogen 33 #H 9-23 mg/dL Creatinine 2.10 H 0.700-1.30 mg/dL Glomerular Filtration Rate Calc 30 >90 mL/min BUN/Creatinine Ratio 15.7 10.0-20.0 Serum Glucose 92 74-106 mg/dL Calcium Level 8.7 8.7-10.4 mg/dL Total Bilirubin 0.7 0.2-1.0 mg/dL Aspartate Amino Transferase (AST) 32 13-40 U/L Alanine Aminotransferase (ALT) 32 7-40 U/L Alkaline Phosphatase 130 H 46-116 U/L Total Protein 5.7 5.7-8.2 g/dL Albumin 3.4 3.2-4.8 g/dL Assessment/Plan Problem List: (1) Hydronephrosis (2) BPH loc w urin obs/LUTS (3) Postoperative complication Plan d/c with kay outpt voiding trial and cystoscopy 1 week start flomax and finasteride. Plan discussed with: Patient, Other MARIA E MARTINEZ NP Oct 20, 2024 09:29
[2024-10-20] MEDS ORDERED: METOPROLOL SUCCINATE XL 50 MG TAB PO SCH (10:00)
[2024-10-20] MEDS: FINASTERIDE 5 MG TAB PO SCH (10:16)
[2024-10-20] MEDS: METOPROLOL TARTRATE 25 MG TAB PO SCH (10:17)
--- NOTE | 2024-10-20 11:35 | DVH ---
XY CYSTOGRAM HISTORY: rule out possible bladder leak COMPARISON: None PROCEDURE: For the purposes of performing a cystogram, 250cc of Isovue 300 contrast was administere d through a catheter into the urinary bladder while observing fluoroscopically. Oblique spot and post void films were then obtained. Total fluoroscopic time was 0.2 minutes. DAP 791 FINDINGS: Vanlue driven contrast flowed normally into the urinary bladder. The bladder demonstrates increased trabecularity. The bladder distended well, with no filling defect seen. No vesicoureteral reflux was noted. No leakage of contrast from the urinary bladder is demonstrated. The post drain image reveals near complete elimination of the contrast within the bladder, with no significant post-drain residual . IMPRESSION: Unremarkable low pressure cystogram without evidence of leakage from the bladder. A small posterior b ladder diverticulum is seen.
--- NOTE | 2024-10-20 12:00 | DVHPN2 ---
Progress Note Date Seen: Oct 20, 2024 Medical Necessity Reason Pt with a Central, PICC or Fol: Yes Subjective Patient reports: Feels better Changes from previous H/P or p: No Changes Objective vital signs Vital Sign Date Time Temp Pulse Resp B/P (MAP) Pulse Ox O2 Delivery O2 Flow Rate FiO2 10/20/24 10:17 82 134/70 10/20/24 09:00 98.7 16 96 98.7 10/20/24 08:00 Room Air* 0 21 Total Intake and Output 10/19/24 10/19/24 10/20/24 15:00 23:00 07:00 Intake Total 50 ml Output Total 500 ml Balance 50 ml -500 ml medications Current Medications Medications Dose Ordered Sig/Shawna Route Start Time Stop Time Status Last Admin Dose Admin Acetaminophen 650 mg Q6HP PRN PO 10/19/24 22:00 Acetaminophen/ Hydrocodone Bitart 1 tab Q6HPRN PRN PO 10/19/24 22:00 Ondansetron HCl 4 mg Q4HP PRN IV 10/19/24 22:00 Morphine Sulfate 2 mg Q4HPRN PRN IV 10/19/24 22:00 Nitroglycerin 0.4 mg Q5MINP PRN SL 10/19/24 22:00 Morphine Sulfate 2 mg Q30M PRN IV 10/19/24 22:00 Metoprolol Tartrate 25 mg DAILY PO 10/20/24 10:00 10/20/24 10:17 25 MG Ceftriaxone Sodium 50 ml @ 100 mls/hr Q24H IV 10/20/24 21:00 Tamsulosin HCl 0.4 mg QPM PO 10/20/24 18:00 Finasteride 5 mg DAILY PO 10/20/24 10:00 10/20/24 10:16 5 MG laboratory and microbiology Laboratory Tests 10/20/24 05:48 Test 10/20/24 05:48 Range/Units Serum Glucose 92 74-106 mg/dL Problem List/Assessment/Plan Problem List/Assessment/Plan pt cystogram negative send pt home with eliza, plan to keep in until he sees urology ok for cardiac diet ok to dc from surgical standpoint fu in 1 week in office Plan discussed with: Patient, Son My Orders My Orders Orders - MOSHE URENA MD Procedure Category Date Status Time Cystogram XY 10/20/24 Resulted 09:00 * Surgical Consult CONS 10/19/24 Transmitted MOSHE URENA MD Oct 20, 2024 12:00
[2024-10-20] MEDS: SOD CHL 0.45% 1,000 ML IV SCH (13:00)
--- NOTE | 2024-10-20 13:39 | DVHINCON2 ---
Date of service: Oct 20, 2024 Reason for Consultation Acute kidney injury History of Present Illness 83 year old male went to [facility] for appendicitis required emergent exlap. has hematuria from kay required CBI. Post op removal of kay developed severe urinary retention. 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 Past Medical History bph htn valve replacement Allergies: Coded Allergies: Penicillins (Verified Allergy, Severe, 09/25/19) Home Meds Reported Medications Metoprolol Tartrate (Lopressor) 25 Mg Tb, 1 TAB PO DAILY for FOR SBP >115 10/20/24 Lisinopril (Lisinopril) 20 Mg Tab, 20 MG PO DAILY for 30 Days, MG 09/25/19 Amlodipine Besylate (Amlodipine Besylate) 5 Mg Tab, 10 MG PO DAILY for 30 Days, MG 09/25/19 Warfarin Sodium (Warfarin Sodium) 5 Mg Tab, 5 MG PO DAILY for 30 Days, MG 09/25/19 Simvastatin (Simvastatin) 20 Mg Tab, 20 MG PO DAILY for 30 Days 09/25/19 Doxazosin Mesylate (Doxazosin Mesylate) 4 Mg Tab, 4 MG PO DAILY, TAB 09/25/19 Current Medications Current Medications Medications (Trade) Dose Ordered Sig/Shawna Route PRN Reason Start Time Stop Time Status Last Admin Acetaminophen (Tylenol Tablet) 650 mg Q6HP PRN PO PAIN SCALE 1-3 OR TEMP>100.4 10/19/24 22:00 Acetaminophen/ Hydrocodone Bitart (Osprey 5/325MG Tab) 1 tab Q6HPRN PRN PO MODERATE PAIN (4-6 PAIN SCALE) 10/19/24 22:00 Ondansetron HCl (Zofran) 4 mg Q4HP PRN IV NAUSEA / VOMITING 10/19/24 22:00 Morphine Sulfate 2 mg Q4HPRN PRN IV SEVERE PAIN (7-10 PAIN SCALE) 10/19/24 22:00 Nitroglycerin (Ntrostat Sublingual) 0.4 mg Q5MINP PRN SL FOR CHEST PAIN 10/19/24 22:00 Morphine Sulfate 2 mg Q30M PRN IV FOR CHEST PAIN 10/19/24 22:00 Metoprolol Succinate (Toprol Xl) 25 mg DAILY PO 10/20/24 10:00 10/20/24 01:10 DC Metoprolol Tartrate (Lopressor Tablet) 25 mg DAILY PO 10/20/24 10:00 10/20/24 10:17 Ceftriaxone Sodium 50 ml @ 100 mls/hr Q24H IV 10/20/24 21:00 Tamsulosin HCl (Flomax) 0.4 mg QPM PO 10/20/24 18:00 Finasteride (Proscar Tablet) 5 mg DAILY PO 10/20/24 10:00 10/20/24 10:16 Sodium Chloride 1,000 ml @ 100 mls/hr Q10H IV 10/20/24 13:00 UNV Warfarin Sodium (Coumadin Per Rx Protocol) 5 mg PER PHARMACY PO 10/20/24 13:00 UNV Amlodipine Besylate (Norvasc Tablet) 5 mg QPM PO 10/20/24 18:00 UNV Family History: Cerebrovascular accident (CVA) G8 FATHER, Hypertension G8 FATHER, Review of Systems Urinary retention and abdominal pain H&P Exam Vital Signs/I&O Vital Sign Date Time Temp Pulse Resp B/P (MAP) Pulse Ox O2 Delivery O2 Flow Rate FiO2 10/20/24 13:00 98.4 75 18 141/81 (101) 93 98.4 10/20/24 08:00 Room Air* 0 21 Intake and Output 10/19/24 10/20/24 18:59 06:59 Intake Total 50 ml Output Total 500 ml Balance -450 ml Intake IV Total 50 ml Output Urine Total 500 ml Physical Exam Elderly male Nonacute distress Abdomen is soft No pitting edema lungs clear to auscultation Labs/Diagnostic Data Labs/Diagnostic Data Laboratory Tests Test 10/20/24 05:48 10/19/24 16:19 Range/Units White Blood Count 10.5 11.2 H 4.4-10.8 10^3/uL Red Blood Count 2.63 L 2.87 L 4.5-5.90 10^6/uL Hemoglobin 8.0 L 8.4 L 13.5-17.5 g/dL Hematocrit 24.0 L 26.4 L 41.0-53.0 % Mean Corpuscular Volume 91.2 92.1 80.0-100.0 fL Mean Corpuscular Hemoglobin 30.4 29.1 28.0-32.0 pg Mean Corpuscular Hemoglobin Concent 33.3 31.6 L 32.0-36.0 g/dL Red Cell Distribution Width 15.7 H 15.9 H 11.8-14.3 % Platelet Count 228 244 140-450 10^3/uL Mean Platelet Volume 8.6 8.6 6.9-10.8 fL Neutrophils (%) (Auto) 88.0 H 91.0 H 37.0-80.0 % Lymphocytes (%) (Auto) 4.9 L 4.4 L 10.0-50.0 % Monocytes (%) (Auto) 5.9 4.2 0.0-12.0 % Eosinophils (%) (Auto) 1.0 0.3 0.0-7.0 % Basophils (%) (Auto) 0.2 0.1 0.0-2.0 % Neutrophils # (Auto) 9.3 H 10.1 H 1.6-8.6 10 ^3/uL Lymphocytes # (Auto) 0.5 0.5 0.4-5.4 10 ^3/uL Monocytes # (Auto) 0.6 0.5 0-1.3 10 ^3/uL Eosinophils # (Auto) 0.1 0 0-0.8 10 ^3/uL Basophils # (Auto) 0 0 0-0.2 10 ^3/uL Nucleated Red Blood Cells 0.1 0.1 % Prothrombin Time 12.0 H 9.3-11.8 sec Prothrombin Time INR 1.15 0.9-1.15 Activated Partial Thromboplast Time 30.3 24.5-34.5 SEC Sodium Level 149 H 147 H 136-145 mmol/L Potassium Level 3.8 3.9 3.5-5.1 mmol/L Chloride Level 118 H 116 H 98-107 mmol/L Carbon Dioxide Level 19 L 19 L 20-31 mmol/L Anion Gap 12 12 5-15 Blood Urea Nitrogen 33 #H 46 H 9-23 mg/dL Creatinine 2.10 H 3.02 H 0.700-1.30 mg/dL Glomerular Filtration Rate Calc 30 20 >90 mL/min BUN/Creatinine Ratio 15.7 15.2 10.0-20.0 Serum Glucose 92 109 H 74-106 mg/dL Calcium Level 8.7 8.7 8.7-10.4 mg/dL Total Bilirubin 0.7 0.2-1.0 mg/dL Aspartate Amino Transferase (AST) 32 13-40 U/L Alanine Aminotransferase (ALT) 32 7-40 U/L Alkaline Phosphatase 130 H 46-116 U/L Total Protein 5.7 5.7-8.2 g/dL Albumin 3.4 3.2-4.8 g/dL Assessment Acute kidney injury in the setting of urinary obstruction ckd unspecified baseline unknown-> 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
[2024-10-20 17:24] LABS: Urine Bacteria None Seen /hpf (None Seen)
[2024-10-20 17:49] LABS: Urine Blood 3+ /uL (Negative); Urine Clarity Clear (Clear); Urine Color Light-Yellow (Yellow); Urine Protein, UAD 2+ (Negative); Urine Specific Gravity 1.013 (1.001-1.035); Urine Squamous Epithelial Cell FEW /hpf (<5); Urine Urobilinogen Normal (Negative); Urine WBC 6 /HPF (0-3); Urine pH 5.5 (5.0-9.0)
[2024-10-20] MEDS: TAMSULOSIN HYDROCHLORIDE 0.4 MG CAP PO SCH (17:50)
[2024-10-20] MEDS: amLODIPine BESYLATE 5 MG TAB PO SCH (18:31)
[2024-10-20] MEDS: cefTRIAXone 1GM/50ML D5W 50 ML IV SCH (22:25)
[2024-10-20] MEDS: WARFARIN SODIUM 5 MG TAB PO ONE (22:37)
[2024-10-21 01:00] VITALS: BP 134/73; PULSE 67; RESP 18; TEMP 98.3; O2SAT 97
[2024-10-21 05:00] VITALS: BP 129/66; PULSE 77; RESP 18; TEMP 97.6; O2SAT 98
[2024-10-21 06:30] LABS: Anion Gap 12 (5-15)
[2024-10-21 06:36] LABS: BUN/Creatinine Ratio 16.1 (10.0-20.0); Blood Urea Nitrogen 19 mg/dL (9-23); Glucose 94 mg/dL (74-106)
[2024-10-21 06:40] LABS: Basophils # (auto) 0 10 ^3/uL (0-0.2); Basophils % (auto) 0.2 % (0.0-2.0); Eosinophils # (auto) 0.2 10 ^3/uL (0-0.8); Hemoglobin 7.8 g/dL (13.5-17.5); Neutrophils # (auto) 8.6 10 ^3/uL (1.6-8.6)
[2024-10-21 06:41] LABS: Calcium 8.5 mg/dL (8.7-10.4); Carbon Dioxide 19 mmol/L (20-31); Chloride 115 mmol/L (98-107); Potassium 3.4 mmol/L (3.5-5.1); Sodium 146 mmol/L (136-145)
[2024-10-21 06:42] LABS: Eosinophils % (auto) 2.4 % (0.0-7.0); Hematocrit 23.7 % (41.0-53.0); Lymphocytes # (auto) 0.6 10 ^3/uL (0.4-5.4); Lymphocytes % (auto) 6.4 % (10.0-50.0); Mean Corpuscular Hgb Conc. 32.8 g/dL (32.0-36.0); Mean Corpuscular Volume 91.6 fL (80.0-100.0); Monocytes # (auto) 0.6 10 ^3/uL (0-1.3); Monocytes % (auto) 5.6 % (0.0-12.0); Neutrophils % (auto) 85.4 % (37.0-80.0); Nucleated Red Blood Cells % 0.1 %; Platelet Count (auto) 231 10^3/uL (140-450); Red Blood Cells 2.59 10^6/uL (4.5-5.90); Red Cell Distribution Width 16.9 % (11.8-14.3)
[2024-10-21 06:47] LABS: INR 1.15 (0.9-1.15); Partial Thromboplastin Time 31.6 SEC (24.5-34.5)
[2024-10-21 08:00] VITALS: PULSE 61; RESP 18; O2SAT 96
[2024-10-21] MEDS: POTASSIUM CHL 20 Meq TABLET PO ONE (08:50)
[2024-10-21 09:00] VITALS: BP 132/58; PULSE 74; RESP 18; TEMP 97.8; O2SAT 96
[2024-10-21 13:00] VITALS: BP 126/54; PULSE 71; RESP 18; TEMP 98; O2SAT 97
[2024-10-21] MEDS ORDERED: FINA5TAB4 PO (13:40)
[2024-10-21] MEDS ORDERED: MUPI2OIN2 (13:40)
[2024-10-21] MEDS ORDERED: TAMS-35 PO (13:40)
[2024-10-21] MEDS ORDERED: IRON100T PO (13:40)
--- NOTE | 2024-10-21 13:42 | DVHDS2 ---
Discharge Summary Date of Admission Oct 19, 2024 at 21:50 Date of Discharge: Oct 21, 2024 Labs/Diagnostic Data: Laboratory Results Test 10/21/24 05:26 10/20/24 15:45 10/19/24 16:19 White Blood Count 10.0 10^3/uL (4.4-10.8) Red Blood Count 2.59 10^6/uL (4.5-5.90) Hemoglobin 7.8 g/dL (13.5-17.5) Hematocrit 23.7 % (41.0-53.0) Mean Corpuscular Volume 91.6 fL (80.0-100.0) Mean Corpuscular Hemoglobin 30.0 pg (28.0-32.0) Mean Corpuscular Hemoglobin Concent 32.8 g/dL (32.0-36.0) Red Cell Distribution Width 16.9 % (11.8-14.3) Platelet Count 231 10^3/uL (140-450) Mean Platelet Volume 8.4 fL (6.9-10.8) Neutrophils (%) (Auto) 85.4 % (37.0-80.0) Lymphocytes (%) (Auto) 6.4 % (10.0-50.0) Monocytes (%) (Auto) 5.6 % (0.0-12.0) Eosinophils (%) (Auto) 2.4 % (0.0-7.0) Basophils (%) (Auto) 0.2 % (0.0-2.0) Neutrophils # (Auto) 8.6 10 ^3/uL (1.6-8.6) Lymphocytes # (Auto) 0.6 10 ^3/uL (0.4-5.4) Monocytes # (Auto) 0.6 10 ^3/uL (0-1.3) Eosinophils # (Auto) 0.2 10 ^3/uL (0-0.8) Basophils # (Auto) 0 10 ^3/uL (0-0.2) Nucleated Red Blood Cells 0.1 % Prothrombin Time 12.0 sec (9.3-11.8) Prothrombin Time INR 1.15 (0.9-1.15) Activated Partial Thromboplast Time 31.6 SEC (24.5-34.5) Sodium Level 146 mmol/L (136-145) Potassium Level 3.4 mmol/L (3.5-5.1) Chloride Level 115 mmol/L (98-107) Carbon Dioxide Level 19 mmol/L (20-31) Anion Gap 12 (5-15) Blood Urea Nitrogen 19 mg/dL (9-23) Creatinine 1.18 mg/dL (0.700-1.30) Glomerular Filtration Rate Calc 61 mL/min (>90) BUN/Creatinine Ratio 16.1 (10.0-20.0) Serum Glucose 94 mg/dL (74-106) Calcium Level 8.5 mg/dL (8.7-10.4) Urine Color Light-yellow (Yellow) Urine Clarity Clear (Clear) Urine pH 5.5 (5.0-9.0) Urine Specific Barrett 1.013 (1.001-1.035) Urine Protein 2+ (Negative) Urine Ketones Negative (Negative) Urine Blood 3+ /uL (Negative) Urine Nitrite Negative (Negative) Urine Bilirubin Negative (Negative) Urine Urobilinogen Normal mg/dL (Negative) Urine Leukocyte Esterase Negative /uL (Negative) Urine RBC 186 /hpf (0 - 3) Urine Microscopic WBC 6 /HPF (0-3) Urine Squamous Epithelial Cells Few /hpf (<5) Urine Bacteria None seen /hpf (None Seen) Urine Glucose Normal mg/dL (Normal) Total Bilirubin 0.7 mg/dL (0.2-1.0) Aspartate Amino Transferase (AST) 32 U/L (13-40) Alanine Aminotransferase (ALT) 32 U/L (7-40) Alkaline Phosphatase 130 U/L (46-116) Total Protein 5.7 g/dL (5.7-8.2) Albumin 3.4 g/dL (3.2-4.8) Other Laboratory Tests 10/21/24 05:26 Brief Hx & Hospital Course: 83-year-old male with past medical history of a fib, Cardiac valve replacement, Present to the hospital For a wound check. Patient recently underwent emerging appendectomy on 10/10 And discharge from [facility] 10/14. Since discharge patient has had difficulty Emptying bladder. Patient seen by home health nurse yesterday Was advised to follow up with surgeon and go to the emergency department for abnormal drainage from incision. At this time the patient is endorsing Lower abdominal discomfort. Denies fevers, chills,Shortness of breath, chest pain, nausea, vomiting. He is admitted and evaluated by his general surgeon as well as urologist. Patient had a Kya catheter inserted and changed to leg bag urinating without issues. His cystogram did not show any leak or acute issues. His kidney function has normalized. He is advised to follow up outpatient with a Urology for possible TURP procedure for enlarged prostate felt causing his obstructive uropathy. Meantime he is started on Flomax and finasteride he is tolerating without issues. Patient noted to be anemic therefore he is also started on iron tablets. Patient MRSA screen in the nurse came back positive therefore he is given prescription for Bactroban applied to the nares as prescribed. I have told the patient and his son at bedside to avoid any close contact with the children are elderly for 7-10 days due to MRSA screen being positive. Otherwise he is felt stable to be discharged home from surgical and urological point of view. Therefore I discussed patient's hospital diagnosis, treatment he received, discharge medications, discharge instructions and follow-up plan of care with the patient as well as his son who is at bedside at length. They have verbalized understanding of these and agree with the care plan as mentioned. Consults/Reason for consult General surgery consult Problem List/Assessment/Plan pt cystogram negative send pt home with kay, plan to keep in until he sees urology ok for cardiac diet ok to dc from surgical standpoint fu in 1 week in office Plan discussed with: Patient, Son My Orders My Orders Orders - MOSHE URENA MD Procedure Category Date Status Time Cystogram XY 10/20/24 Resulted 09:00 * Surgical Consult CONS 10/19/24 Transmitted MOSHE URENA MD Oct 20, 2024 12:00 Urology consult Problem List: (1) Hydronephrosis (2) BPH loc w urin obs/LUTS (3) Postoperative complication Plan d/c with kay outpt voiding trial and cystoscopy 1 week start flomax and finasteride. Plan discussed with: Patient, Other MARIA E MARTINEZ CAFE HELPER Oct 20, 2024 09:29 Operations or Procedures ORDERING PHYSICIAN: MOSHE URENA MD PROCEDURE(s): CYSTO - CYSTOGRAM REASON: rule out possible bladder leak ORDER NUMBER(s): [id number], ACCESSION NUMBER(s): [id number] CYSTOGRAM HISTORY: rule out possible bladder leak COMPARISON: None PROCEDURE: For the purposes of performing a cystogram, 250cc of Isovue 300 contrast was administered through a catheter into the urinary bladder while observing fluoroscopically. Oblique spot and post void films were then obtained. Total fluoroscopic time was 0.2 minutes. DAP 791 FINDINGS: Barrett driven contrast flowed normally into the urinary bladder. The bladder demonstrates increased trabecularity. The bladder distended well, with no filling defect seen. No vesicoureteral reflux was noted. No leakage of contrast from the urinary bladder is demonstrated. The post drain image reveals near complete elimination of the contrast within the bladder, with no significant post-drain residual. IMPRESSION: Unremarkable low pressure cystogram without evidence of leakage from the bladder. A small posterior bladder diverticulum is seen. Condition at Discharge: Stable Final Diagnosis/Problems List Obstructive uropathy status post Kay with a leg bag, BPH outpatient follow up with the Urology, iron deficiency anemia Discharge Disposition: Home Discharge Instruct/Medications Diet: Consistent carbohydrate, Cardiac 2g Na,low cholest Activity: No Restrictions, As Tolerated Follow Up/Referral: Urologist Dr. Justin Garcia after 10-14 days for enlarged prostate and Kay catheter care and management as appropriate. Medications: As prescribed and home medications per discharge medication list. New Medications: Finasteride (Finasteride) 5 Mg Tab 1 TAB PO DAILY, #30 TAB 1 Refill Iron-Vitamin C (Iron 100/C) 1 Tab Tab 1 TAB PO DAILY@BREAKFAST, #30 TAB Mupirocin (Pseudomonas Fluores (Mupirocin) 2 % Oin 2 % NA BID for 10 Days, #1 OIN Tamsulosin Hcl (Flomax) 0.4 Mg Cap 1 CAP PO DAILY, #30 CAP Continued Medications: Amlodipine Besylate (Amlodipine Besylate) 5 Mg Tab 10 MG PO DAILY for 30 Days, MG Doxazosin Mesylate (Doxazosin Mesylate) 4 Mg Tab 4 MG PO DAILY, TAB Lisinopril (Lisinopril) 20 Mg Tab 20 MG PO DAILY for 30 Days, MG Metoprolol Tartrate (Lopressor) 25 Mg Tb 1 TAB PO DAILY for FOR SBP >115 Simvastatin (Simvastatin) 20 Mg Tab 20 MG PO DAILY for 30 Days Warfarin Sodium (Warfarin Sodium) 5 Mg Tab 5 MG PO DAILY for 30 Days, MG Discharge Statement: "Patient was advised to return to the ER or call 911 if any headaches, dizziness, shortness of breath, chest pain, abdominal pain, bleeding, fevers, or worsening of medical condition. Patient was counseled about treatment plan, medications, possible side effects, patientverbalized understanding. All questions were answered to the best of my ability. This discharge took greater then 30 minutes in planning, reviewing documentation, counseling the patient, and discussing with other team members." ASSESSMENT ASSESSMENT Assessment Obstructive uropathy status post Kay with a leg bag, BPH outpatient follow up with the Urology, iron deficiency anemia TEE BUSTOS MD Oct 21, 2024 13:42
[2024-10-21 14:30] VITALS: BP 132/58; PULSE 74; TEMP 36.6
--- NOTE | 2024-10-21 14:33 | DVHPN2 ---
Progress Note Date Seen: Oct 21, 2024 Medical Necessity Reason Pt with a Central, PICC or Fol: Yes The following are medically ne: Kay Catheter Reason for kay catheter: Bladder Retention/Obstruc Objective vital signs Vital Sign Date Time Temp Pulse Resp B/P (MAP) Pulse Ox O2 Delivery O2 Flow Rate FiO2 10/21/24 09:51 74 132/58 10/21/24 09:00 97.8 18 96 97.8 10/21/24 08:00 Room Air* 0 21 Total Intake and Output 10/20/24 10/20/24 10/21/24 15:00 23:00 07:00 Intake Total 2470 ml 250 ml Output Total 1250 ml 900 ml Balance 1220 ml -650 ml medications Current Medications Medications Dose Ordered Sig/Shawna Route Start Time Stop Time Status Last Admin Dose Admin Acetaminophen 650 mg Q6HP PRN PO 10/19/24 22:00 Acetaminophen/ Hydrocodone Bitart 1 tab Q6HPRN PRN PO 10/19/24 22:00 Ondansetron HCl 4 mg Q4HP PRN IV 10/19/24 22:00 Morphine Sulfate 2 mg Q4HPRN PRN IV 10/19/24 22:00 Nitroglycerin 0.4 mg Q5MINP PRN SL 10/19/24 22:00 Morphine Sulfate 2 mg Q30M PRN IV 10/19/24 22:00 Metoprolol Tartrate 25 mg DAILY PO 10/20/24 10:00 10/21/24 08:51 25 MG Ceftriaxone Sodium 50 ml @ 100 mls/hr Q24H IV 10/20/24 21:00 10/20/24 22:25 100 MLS/HR Tamsulosin HCl 0.4 mg QPM PO 10/20/24 18:00 10/20/24 17:50 0.4 MG Finasteride 5 mg DAILY PO 10/20/24 10:00 10/21/24 08:52 5 MG Sodium Chloride 1,000 ml @ 100 mls/hr Q10H IV 10/20/24 13:00 10/21/24 08:54 100 MLS/HR Warfarin Sodium -Hazardous Drug -DO NOT CRUSH OR ... PER PHARMACY PO 10/20/24 13:00 Amlodipine Besylate 5 mg QPM PO 10/20/24 18:00 10/20/24 18:31 5 MG Examination: GENERAL:Normal, CVS:Normal, ABDOMEN:Normal, SKIN:Normal laboratory and microbiology Laboratory Tests 10/21/24 05:26 Test 10/21/24 05:26 Range/Units Serum Glucose 94 74-106 mg/dL Microbiology Date/Time Source Procedure Growth Status 10/20/24 03:50 Nose MRSA Screen - Final Methicillin Resistant S.aureus Complete Problem List/Assessment/Plan Problem List/Assessment/Plan Acute kidney injury in the setting of urinary obstruction ckd unspecified baseline unknown-> mild age-related kidney disease as per patient indicated in the possibility of stage 2 kidney disease at baseline versus 3A b/l hydronephrosis w/ BPH s/p appendectomy in [facility] hypokalemia EDWAR has improved significantly today encourage more water today agree with keeping kay in place monitor [facility] correct electrolytes, replace potassium today stable to f/u in outpatient f/u in clinic Plan discussed with: Patient RICH MOORE MD Oct 21, 2024 14:33
[2024-10-21] MEDS ORDERED: WARFARIN SODIUM 2 MG TAB PO ONE (17:00)
== END 2024-10-21 15:22 | disposition home health service (06) | DRG 726 ==
LOC: ER 15:22 → OVERFLOW 21:50 → TELE-CENTR 10-20 02:51
PROVIDERS: ADMIT Nurse Practitioner Family; ATTEND Nurse Practitioner Family
DX: N40.1 Benign prostatic hyperplasia with lower urinary tract symptoms (principal); I48.20 Chronic atrial fibrillation, unspecified; N13.8 Other obstructive and reflux uropathy; N17.9 Acute kidney failure, unspecified; N13.39 Other hydronephrosis; R33.8 Other retention of urine; Y83.8 Other surgical procedures as the cause of abnormal reaction of the patient, or of later complication, without mention of misadventure at the time of the procedure; Y82.8 Other medical devices associated with adverse incidents; E66.9 Obesity, unspecified; D50.9 Iron deficiency anemia, unspecified; N18.9 Chronic kidney disease, unspecified; I12.9 Hypertensive chronic kidney disease with stage 1 through stage 4 chronic kidney disease, or unspecified chronic kidney disease; Z88.0 Allergy status to penicillin; Z79.01 Long term (current) use of anticoagulants; Z79.899 Other long term (current) drug therapy; Z95.2 Presence of prosthetic heart valve; Z79.891 Long term (current) use of opiate analgesic; Z79.1 Long term (current) use of non-steroidal anti-inflammatories (NSAID); Z90.49 Acquired absence of other specified parts of digestive tract; Z82.3 Family history of stroke; Z68.26 Body mass index [BMI] 26.0-26.9, adult; Z86.73 Personal history of transient ischemic attack (TIA), and cerebral infarction without residual deficits; Y92.89 Other specified places as the place of occurrence of the external cause; Z82.49 Family history of ischemic heart disease and other diseases of the circulatory system
CPT/HCPCS: 36415; 74176; 74430; 80048; 80053; 81001; 85025; 85610; 85730; 87081; 93005; 96365; 96375; 97163; G0378

== ENCOUNTER 2025-02-24 20:10 | Inpatient (IN) | payer OTHER ==
[~2025-02-24] VITALS: Ht 166.4 cm; Wt 74.1 kg
[~2025-02-24 20:10] MED LIST changes: +FINA5TAB4 PO; +IRON100T PO; +MET25T PO; +MUPI2OIN2; +TAMS-35 PO
--- NOTE | 2025-02-24 21:21 | ED.PDOC ---
SOB-HPI HPI Comments 84y M who presents to the ED for chief complaint of shortness of breath. Pt states he has been having shortness of breath for the past 1x month. Pt states he has history of prostate problems and states he was told by PCP to stop tamsulosin 2x days prior due to it causing shortness of breath. Pt now in the ED, has stable vitals with 02 sat of 94% on room air and no noted respiratory distress. Pt has noted bilateral lower extremity edema. Pt otherwise denies any other symptoms at this time. Chief Complaint: Shortness of Breath Time Seen by MD: 21:19 Primary Care Provider: NEDA Rosenberg notes: Medications, Allergies Information Source: Patient, Relative Mode of Arrival: Wheelchair Brought in by: family member Past Medical History PAST MEDICAL HISTORY: Denies Surgical History: Denies all surgeries Family History Family History: Reviewed,noncontributory to illness Social History Smoker: Non-Smoker Alcohol: Denies ETOH Use Drugs: Denies Drug Use Lives In: Home Constitutional: denies: chills, diaphoresis, fatigue, fever, malaise, sweats, weakness, others EENTM: denies: blurred vision, double vision, ear bleeding, ear discharge, ear drainage, ear pain, ear ringing, eye pain, eye redness, hearing loss, mouth pain, mouth swelling, nasal discharge, nose bleeding, nose congestion, nose pain, photophobia, tearing, throat pain, throat swelling, voice changes, others Respiratory: reports: shortness of breath; denies: cough, hemoptysis, orthopnea, SOB at rest, SOB with excertion, stridor, wheezing, others Cardiovascular: denies: chest pain, dizzy spells, diaphoresis, Dyspnea on exertion, edema, irregular heart beat, left arm pain, lightheadedness, pa lpitations, PND, syncope, others Gastrointestinal: denies: abdomen distended, abdominal pain, blood streaked bowels, constipated, diarrhea, dysphagia, difficulty swallowing, hematemesis, melena, nausea, poor appetite, poor fluid intake, rectal bleeding, rectal pain, vomiting, others Genitourinary: denies: burning, dysuria, flank pain, frequency, hematuria, incontinence, penile discharge, penile sore, pain, testicle pain, testicle swelling, urgency, others Neurological: denies: dizziness, fainting, headache, left sided numbness, left sided weakness, numbness, paresthesia, pre-existing deficit, right sided numbness, right sided weakness, seizure, speech problems, tingling, tremors, weakness, others Musculoskeletal: denies: back pain, gout, joint pain, joint swelling, muscle pain, muscle stiffness, neck pain, others Integumetry: denies: bruises, change in color, change in hair/nails, dryness, laceration, lesions, lumps, rash, wounds, others Allergic/Immunocompromised: denies: Difficulty Healing, Frequent Infections, Hives, Itching, others Hematologic/Lymphatic: denies: anemia, blood clots, easy bleeding, easy br uising, swollen glands, others Endocrine: denies: excessive hunger, excessive sweating, excessive thirst, excessive urination, flushing, intolerance to cold, intolerance to heat, unexplained weight gain, unexplained weight loss, others Psychiatric: denies: anxiety, bipolar disorder, depression, hopeless, panic disorder, schizophrenia, sleepless, suicidal, others All Other Systems: Reviewed and Negative Physical Exam General Appearance: No Apparent Distress, Normal HEENT: Normal ENT Inspection, Pharynx Normal, TMs Normal Neck: Full Range of Motion, Non-Tender, Normal, Normal Inspection Respiratory: Lungs Clear Cardiovascular: No Edema, No JVD, No Murmur, No Gallop, Normal Peripheral Pulses, Regular Rate/Rhythm Breast Exam: Deferred Gastrointestinal: No Organomegaly, Non Tender, No Pulsatile Mass, Normal Bowel Sounds, Soft Genitalia: Deferred Pelvic: Deferred Rectal: Deferred Extremities: Pedal edema (1+ pitting edema) Musculoskeletal : Apperance: Normal Neurologic: Alert, washer hand II-XII nml as Tested, No Motor Deficits, Normal Affect, Normal Mood, No Sensory Deficits Cerebellar Function: Normal Reflexes: Normal Skin: Dry, Normal Color, Warm Lymphatic: No Adenopathy Was a procedure done? Was a procedure done?: No Differential Dx Differential Diagnosis: Bronchitis, CHF, COPD, Hyperventilation, Pneumonia, Pulmonary Embolism, Respiratory Distress, URI X-Ray, Labs, Meds, VS Vital Signs Date Time Temp Pulse Resp B/P (MAP) Pulse Ox O2 Delivery O2 Flow Rate FiO2 02/24/25 23:24 97.7 75 18 119/56 (77) 93 97.7 02/24/25 20:34 94 Room Air* 0 21 02/24/25 20:34 98.5 84 24 114/65 (81) 94 98.5 Lab Test 02/24/25 21:34 Range/Units White Blood Count 6.4 4.4-10.8 10^3/uL Red Blood Count 2.97 L 4.5-5.90 10^6/uL Hemoglobin 9.0 L 13.5-17.5 g/dL Hematocrit 27.1 L 41.0-53.0 % Mean Corpuscular Volume 91.4 80.0-100.0 fL Mean Corpuscular Hemoglobin 30.3 28.0-32.0 pg Mean Corpuscular Hemoglobin Concent 33.1 32.0-36.0 g/dL Red Cell Distribution Width 16.2 H 11.8-14.3 % Platelet Count 183 140-450 10^3/uL Mean Platelet Volume 8.6 6.9-10.8 fL Neutrophils (%) (Auto) 86.1 H 37.0-80.0 % Lymphocytes (%) (Auto) 7.1 L 10.0-50.0 % Monocytes (%) (Auto) 5.5 0.0-12.0 % Eosinophils (%) (Auto) 0.8 0.0-7.0 % Basophils (%) (Auto) 0.5 0.0-2.0 % Neutrophils # (Auto) 5.5 1.6-8.6 10 ^3/uL Lymphocytes # (Auto) 0.5 0.4-5.4 10 ^3/uL Monocytes # (Auto) 0.4 0-1.3 10 ^3/uL Eosinophils # (Auto) 0.1 0-0.8 10 ^3/uL Basophils # (Auto) 0 0-0.2 10 ^3/uL Nucleated Red Blood Cells 0.1 % Sodium Level 144 136-145 mmol/L Potassium Level 4.5 3.5-5.1 mmol/L Chloride Level 114 H 98-107 mmol/L Carbon Dioxide Level 21 20-31 mmol/L Anion Gap 9 5-15 Blood Urea Nitrogen 31 H 9-23 mg/dL Creatinine 1.74 H 0.700-1.30 mg/dL Glomerular Filtration Rate Calc 38 >90 mL/min BUN/Creatinine Ratio 17.8 10.0-20.0 Serum Glucose 109 H 74-106 mg/dL Calcium Level 9.6 8.7-10.4 mg/dL Total Bilirubin 0.8 0.2-1.0 mg/dL Aspartate Amino Transferase (AST) 23 13-40 U/L Alanine Aminotransferase (ALT) 10 7-40 U/L Alkaline Phosphatase 117 H 46-116 U/L B-Type Natriuretic Peptide 123.06 0-100 pg/mL Total Protein 6.6 5.7-8.2 g/dL Albumin 4.0 3.2-4.8 g/dL X-Ray, Labs, Meds, VS Comment Chest x-ray shows large pleural effusion noted on the left side and small pleural effusion on the right side Patient will be admitted for shortness a breath and pleural effusion Recommend cardiology consult Recommend pulmonology consult Pending orders from DOMONIQUE Ibrahim Time of 1ST Reevaluation: 21:50 Reevaluation 1ST: Unchanged Patient Education/Counseling: Diagnosis, Treatment Family Education/Counseling: Diagnosis, Treatment SEPSIS Sepsis Screen Date sepsis recognized/suspect: Feb 24, 2025 Time Sepsis recognized/suspect: 2019 Recent Procedure: No On Antibiotic Therapy: No Respiratory Rate >20: Yes Heart Rate >90: No Temp<36 C (96.8 F) or >38.3 C: No SBP <90 or MAP <65 mmHG: No New Acute Mental Status Change: No Is the patient on CPAP, BIPAP,: No Physician Orders Urinalysis (02/24/25 21:26) Chest Xray 1 View (02/24/25 21:26) Vital Signs Date Time Temp Pulse Resp B/P (MAP) Pulse Ox O2 Delivery O2 Flow Rate FiO2 02/24/25 23:24 97.7 75 18 119/56 (77) 93 97.7 02/24/25 20:34 94 Room Air* 0 21 02/24/25 20:34 98.5 84 24 114/65 (81) 94 98.5 Laboratory Tests Test 02/24/25 21:34 White Blood Count 6.4 10^3/uL (4.4-10.8) Departure 1 Departure Time of Disposition: 00:08 Impression: Primary Impression: Pleural effusion Disposition: ADMITTED INPATIENT Condition: Fair Critical Care Note Critical Care Time?: No Stability Stability form required: No Heart Score Heart Score: Heart Score Response (Comments) Value History N/A 0 EKG N/A 0 Age N/A 0 Risk Factors N/A 0 Troponin N/A 0 Total 0 I personally scribed for CARNO COLE (JAY JAY) on 02/24/25 at 21:21. Electronically submitted by Claudy Castro (MONE). CARON COLE Feb 24, 2025 21:21
[2025-02-24 21:53] LABS: Hematocrit 27.1 % (41.0-53.0); Hemoglobin 9.0 g/dL (13.5-17.5); Mean Corpuscular Hemoglobin 30.3 pg (28.0-32.0); Mean Corpuscular Volume 91.4 fL (80.0-100.0); Nucleated Red Blood Cells % 0.1 %
[2025-02-24 22:12] LABS: Alanine Aminotransferase 10 U/L (7-40); Albumin 4.0 g/dL (3.2-4.8); Anion Gap 9 (5-15); BUN/Creatinine Ratio 17.8 (10.0-20.0); Bilirubin, Total 0.8 mg/dL (0.2-1.0); Calcium 9.6 mg/dL (8.7-10.4); Carbon Dioxide 21 mmol/L (20-31); Potassium 4.5 mmol/L (3.5-5.1); Sodium 144 mmol/L (136-145); Total Protein 6.6 g/dL (5.7-8.2)
[2025-02-24 22:18] LABS: Alkaline Phosphatase 117 U/L (46-116); Blood Urea Nitrogen 31 mg/dL (9-23); Chloride 114 mmol/L (98-107); Glucose 109 mg/dL (74-106)
--- NOTE | 2025-02-24 22:46 | DVH ---
EXAM: XY CHEST XRAY 1 VIEW CLINICAL HISTORY: sob TECHNIQUE: Single AP view of the chest WID: COMPARISON: None FINDINGS: Lines and tubes: None Chest: Cardiomegaly. Large left and small right pleural effusions. No pneumothorax. The osseous structures are grossly intact. IMPRESSION: Cardiomegaly, large left and small right pleural effusions.
[2025-02-25] VITALS (10 sets, daily range): BP systolic 106–124; BP diastolic 56–80; PULSE 63–84; RESP 16–19; TEMP 96.8–97.8; O2SAT 95–98
[2025-02-25] MEDS ORDERED: ONDANSETRON HCL 4 MG/2 ML VIAL IV PRN (01:30)
[2025-02-25] MEDS ORDERED: ALBUTEROL SULF 2.5 MG/0.5ML(0.5%) NEB SOLN NEB PRN (01:30)
[2025-02-25] MEDS ORDERED: MORPHINE SULFATE INJ 2 MG/ml SYRG IV PRN (01:30)
[2025-02-25] MEDS ORDERED: IPRATROPIUM BROM 0.5 MG/2.5ML INH SOL NEB PRN (01:30)
[2025-02-25] MEDS ORDERED: HYDROcodone-ACET 5/325MG TAB PO PRN (01:30)
[2025-02-25] MEDS ORDERED: ACETAMINOPHEN 325 MG TAB PO PRN (01:30)
[2025-02-25] MEDS ORDERED: NITROGLYCERIN 0.4 MG SL TAB SL PRN (01:30)
[2025-02-25 01:56] LABS: INR 3.97 (0.9-1.15); Partial Thromboplastin Time 48.8 SEC (24.5-34.5); Prothrombin Time 36.7 sec (9.3-11.8)
--- NOTE | 2025-02-25 02:20 | DVHHP2 ---
LILLIAM LIANG [employer] 02/25/25 0220: History of Present Illness Reason for Visit: Shortness of breaths History of Present Illness 84-year-old male with past medical history of enlarged prostate, AFib on Coumadin, prosthetic cardiac valve presents with complaints of worsening shortness of breath over the previous month. Patient is having difficulty talking in full sentences. States he feels very short of breath with minimal activity. During the emergency department evaluation CBC was unremarkable. CMP was unremarkable. CXR did demonstrate a large left pleural effusion and small right pleural effusion. At this time the patient denies fevers, chills, chest pain, palpitations, nausea, vomiting, previous episodes of pleural effusions. Cardiovascular: AFIB, HTN Renal/: Chronic renal insuff Past Surgical History: Appendectomy Smoke: No ALCOHOL: none Lives: with Family Review of Systems Constitutional: No: Fever, Chills, Sweats, Weakness, Malaise, Other Eyes: No: Pain, Vision change, Conjunctivae inflammation, Eyelid inflammation, Other, Redness ENT: No: Ear pain, Ear discharge, Nose pain, Nose discharge, Nose congestion, Mouth pain, Mouth swelling, Throat pain, Throat swelling, Other Respiratory: Shortness of breath, SOB with excertion; No: Cough, Dry, Wheezing, Hemoptysis, Pleuritic Pain, Sputum, Wheezing, Other Cardiovascular: No: Chest Pain, Palpitations, Orthopnea, Paroxysmal Noc. Dyspnea, Edema, Lt Headedness, Other Gastrointestinal: No: Nausea, Vomiting, Abdominal Pain, Diarrhea, Constipation, Melena, Hematochezia, Other Genitourinary: No Dysuria, No Frequency, No Incontinence, No Hematuria, No Retention, No Other Musculoskeletal: No: other, neck pain, shoulder pain, arm pain, back pain, hand pain, leg pain, foot pain Skin: No: Rash, Lesions, Jaundice, Bruising, Other Neurological: No: Weakness, Numbness, Incoordination, Change in speech, Confusion, Seizures, Other Allergies: Coded Allergies: Penicillins (Verified Allergy, Severe, 09/25/19) Medications Current Medications Medications Dose Ordered Sig/Shawna Route Start Time Stop Time Status Last Admin Dose Admin Acetaminophen 650 mg Q6HP PRN PO 02/25/25 01:30 Acetaminophen/ Hydrocodone Bitart 1 tab Q6HP PRN PO 02/25/25 01:30 Ondansetron HCl 4 mg Q4HP PRN IV 02/25/25 01:30 Nitroglycerin 0.4 mg Q5MINP PRN SL 02/25/25 01:30 Morphine Sulfate 2 mg Q30M PRN IV 02/25/25 01:30 Metoprolol Tartrate 25 mg DAILY PO 02/25/25 10:00 Albuterol 2.5 mg Q4HP PRN NEB 02/25/25 01:30 Ipratropium Hazard 0.5 mg Q4HPRN PRN NEB 02/25/25 01:30 Tamsulosin HCl 0.4 mg DAILY PO 02/25/25 10:00 Exam Vital Signs Vital Signs Date Time Temp Pulse Resp B/P (MAP) Pulse Ox O2 Delivery O2 Flow Rate FiO2 02/25/25 01:38 97.7 75 18 119/56 96 0.0 21 97.7 02/24/25 20:34 Room Air* General Appearance: Alert, Oriented X3, Cooperative, moderate distress HEENT: Atraumatic, PERRLA, EOMI Respiratory: Other (Diminished air exchange. Increased respiratory effort at rest.) Cardiovascular: Regular rate, Normal S1, Normal S2 Abdominal: Normal bowel sounds, Soft, No tenderness Extremities: No clubbing, Normal pulses Skin: No rashes, No breakdown Neuro: Normal speech, Strength at 5/5 X4 ext Psych/Mental Status: Mental status NL, Mood NL Labs/Xrays Labs Test 02/24/25 21:34 Range/Units White Blood Count 6.4 4.4-10.8 10^3/uL Red Blood Count 2.97 L 4.5-5.90 10^6/uL Hemoglobin 9.0 L 13.5-17.5 g/dL Hematocrit 27.1 L 41.0-53.0 % Mean Corpuscular Volume 91.4 80.0-100.0 fL Mean Corpuscular Hemoglobin 30.3 28.0-32.0 pg Mean Corpuscular Hemoglobin Concent 33.1 32.0-36.0 g/dL Red Cell Distribution Width 16.2 H 11.8-14.3 % Platelet Count 183 140-450 10^3/uL Mean Platelet Volume 8.6 6.9-10.8 fL Neutrophils (%) (Auto) 86.1 H 37.0-80.0 % Lymphocytes (%) (Auto) 7.1 L 10.0-50.0 % Monocytes (%) (Auto) 5.5 0.0-12.0 % Eosinophils (%) (Auto) 0.8 0.0-7.0 % Basophils (%) (Auto) 0.5 0.0-2.0 % Neutrophils # (Auto) 5.5 1.6-8.6 10 ^3/uL Lymphocytes # (Auto) 0.5 0.4-5.4 10 ^3/uL Monocytes # (Auto) 0.4 0-1.3 10 ^3/uL Eosinophils # (Auto) 0.1 0-0.8 10 ^3/uL Basophils # (Auto) 0 0-0.2 10 ^3/uL Nucleated Red Blood Cells 0.1 % Prothrombin Time 36.7 H 9.3-11.8 sec Prothrombin Time INR 3.97 H 0.9-1.15 Activated Partial Thromboplast Time 48.8 H 24.5-34.5 SEC Sodium Level 144 136-145 mmol/L Potassium Level 4.5 3.5-5.1 mmol/L Chloride Level 114 H 98-107 mmol/L Carbon Dioxide Level 21 20-31 mmol/L Anion Gap 9 5-15 Blood Urea Nitrogen 31 H 9-23 mg/dL Creatinine 1.74 H 0.700-1.30 mg/dL Glomerular Filtration Rate Calc 38 >90 mL/min BUN/Creatinine Ratio 17.8 10.0-20.0 Serum Glucose 109 H 74-106 mg/dL Calcium Level 9.6 8.7-10.4 mg/dL Total Bilirubin 0.8 0.2-1.0 mg/dL Aspartate Amino Transferase (AST) 23 13-40 U/L Alanine Aminotransferase (ALT) 10 7-40 U/L Alkaline Phosphatase 117 H 46-116 U/L B-Type Natriuretic Peptide 123.06 0-100 pg/mL Total Protein 6.6 5.7-8.2 g/dL Albumin 4.0 3.2-4.8 g/dL Assessment/Plan Assessment/Plan Large left plural effusion Dyspnea Enlarged prostate Chronic kidney disease Hx Afib on Coumadin Hx Cardiac valve prosthesis Plan Admit to telemetry Pulmonology consult. Bronchodilators. As needed, supplemental O2 to maintain oxygen saturation greater than 93%. Consult interventional radiology for thoracentesis. Monitor BMP. Monitor PT / INR. Correct coags as needed. Continue home medications. Hold Coumadin for now. Gi ppx protonix / DVT ppx scd Plan discussed with: Patient, Son My Orders Orders - LILLIAM LIANG NP Procedure Category Date Status Time Admit ADMIT 02/25/25 Transmitted 01:23 Code Status CODE 02/25/25 Transmitted 01:23 Vital Signs TYLER 02/25/25 In Process 01:23 Review Orders With TYLER 02/25/25 In Process Adm. 01:23 Encourage Activity As TYLER 02/25/25 In Process Tolerate 01:23 Npo (Nothing By DIET 02/25/25 Transmitted Mouth) Diet Breakfast Oxygen By Face Mask RT 02/25/25 Transmitted 01:23 Acetaminophen Tablet PHA 02/25/25 In Process (Tylenol Tablet) 01:30 Notify Of Changes [facility] 02/25/25 In Process From Base 01:23 Advance Directive TYLER 02/25/25 In Process 01:23 Basic Metabolic Panel LAB 02/25/25 Logged 05:00 Basic Metabolic Panel LAB 02/26/25 Verified 05:00 Basic Metabolic Panel LAB 02/27/25 Verified 05:00 Basic Metabolic Panel LAB 02/28/25 Verified 05:00 Complete Blood Count LAB 02/25/25 Logged 05:00 Complete Blood Count LAB 02/26/25 Verified 05:00 Complete Blood Count LAB 02/27/25 Verified 05:00 Patient Condition ORDERS 02/25/25 Transmitted 01:23 Allergies TYLER 02/25/25 In Process 01:23 Hydrocodone-Acet PHA 02/25/25 In Process 5/325mg Tab (Carmel 01:30 Ondansetron Hcl PHA 02/25/25 In Process (Zofran) 01:30 Sequential TYLER 02/25/25 In Process Compression Device Nitroglycerin PHA 02/25/25 In Process Sublingual (Ntrostat 01:30 Morphine Sulfate PHA 02/25/25 In Process Injection 01:30 Stat Ekg For Chest TYLER 02/25/25 In Process Pain 01:23 Notify Of Changes [facility] 02/25/25 In Process From Base 01:23 Information Architect For [facility] 02/25/25 In Process 24 Hours 01:23 Emergency Dysrhythmia TYLER 02/25/25 In Process Protocol 01:23 Rhythm Strips Once [facility] 02/25/25 In Process Every Shift 01:23 Oxygen By Nasal RT 02/25/25 Transmitted Cannula 01:23 Thoracentesis US 02/25/25 Logged 08:00 *Consult CONS 02/25/25 Transmitted / 01:23 Metoprolol Tartrate PHA 02/25/25 In Process Tablet (Lopressor Ta 10:00 Albuterol Medneb PHA 02/25/25 In Process (Ventolin Medneb) 01:30 Ipratropium Medneb PHA 02/25/25 In Process (Atrovent Medneb) 01:30 Tamsulosin PHA 02/25/25 In Process Hydrochloride (Flomax) 10:00 Chest Ultrasound US 02/25/25 Taken Date of Service: Feb 25, 2025 Billing Provider: RAGHAV SORIANO MD Common Visit Codes: NOT BILLABLE RAGHAV SORIANO MD 02/25/25 1411: Review of Systems Allergies: Coded Allergies: Penicillins (Verified Allergy, Severe, 09/25/19) Additional Comments Additional Comments Additional Comments 84-year-old male with a known history of BPH, CKD, chronic AFib on Coumadin, history of cardiac valve prosthesis presented to the hospital with the increasing shortness a breath found to have 1. Progressive Shortness of breaths/dyspnea on exertion secondary to left-sided pleural effusion 2. Left-sided pleural effusion 3. Secondary coagulopathy due to warfarin status post vitamin K subQ 4. Chronic AFib 5. History of cardiac prosthetic valve 6. BPH -vitamin K subQ x1, repeat INR, IR consultation for left thoracentesis we will resume Coumadin afterwards. Large left plural effusion Dyspnea Enlarged prostate Chronic kidney disease Hx Afib on Coumadin Hx Cardiac valve prosthesis LILLIAM LIANG NP Feb 25, 2025 02:20 RAGHAV SORIANO MD Feb 25, 2025 14:11
--- NOTE | 2025-02-25 02:54 | DVH ---
Clinical history: PLEURAL EFFUSION Technique: Limited real-time ultrasonography of the right and left chest was performed. IMPRESSION: There are small bilateral pleural effusions, right greater than left. Incidental note of large 17 cm cystic lesion within the liver, as seen on prior CT of 10/19/2024.
[2025-02-25 04:11] LABS: Hematocrit 27.2 % (41.0-53.0); Hemoglobin 8.9 g/dL (13.5-17.5); Mean Corpuscular Hemoglobin 30.2 pg (28.0-32.0); Mean Corpuscular Volume 91.8 fL (80.0-100.0); Nucleated Red Blood Cells % 0.1 %
[2025-02-25 04:29] LABS: Potassium 4.5 mmol/L (3.5-5.1); Sodium 144 mmol/L (136-145)
[2025-02-25 04:30] LABS: Anion Gap 10 (5-15); Calcium 9.8 mg/dL (8.7-10.4); Carbon Dioxide 20 mmol/L (20-31)
[2025-02-25 04:32] LABS: Chloride 114 mmol/L (98-107)
[2025-02-25 04:35] LABS: BUN/Creatinine Ratio 17.3 (10.0-20.0); Glucose 94 mg/dL (74-106)
[2025-02-25 04:44] LABS: Blood Urea Nitrogen 29 mg/dL (9-23)
[2025-02-25] MEDS: PHYTONADIONE (VIT K)10 MG/ML 1ML VIAL SUBCUT ONE (04:59)
[2025-02-25 09:02] LABS: Urine Protein, UAD 3+ (Negative); Urine WBC Clumps PRESENT /hpf (None Seen)
[2025-02-25] MEDS: TAMSULOSIN HYDROCHLORIDE 0.4 MG CAP PO SCH (09:26)
[2025-02-25] MEDS: METOPROLOL TARTRATE 25 MG TAB PO SCH (09:27)
[2025-02-25 16:31] LABS: INR 3.52 (0.9-1.15); Partial Thromboplastin Time 46.5 SEC (24.5-34.5); Prothrombin Time 32.9 sec (9.3-11.8)
--- NOTE | 2025-02-25 19:46 | DVHINCON2 ---
Date of service: Feb 25, 2025 Referring Physician DOMONIQUE Ibrahim Reason for Consultation Acute hypoxic respiratory failure and pleural effusions History of Present Illness An 84-year-old man with past medical history of hypertension, AFib on Coumadin, prosthetic cardiac valve, chronic renal insufficiency and enlarged prostate who presents to ED today with complaints of worsening shortness of breath over the previous month. Patient was noted to have difficulty speaking in full sentences. Admits to feeling very short of breath with minimal activity. Pt denies fevers, chills, chest pain, palpitations, N/V/D or other acute complaints. ED workup included CBC which was unremarkable. CMP was unremarkable. CXR did demonstrate a large left pleural effusion and small right pleural effusion. Patient was admitted for further care and pulmonary consultation is requested for evaluation and management of acute hypoxic respiratory failure and pleural effusions. Review of Systems: 14-point review of systems negative unless otherwise noted above. Past Medical History: Hypertension, AFib on Coumadin, prosthetic cardiac valve, chronic renal insufficiency and enlarged prostate Past Surgical History: Appendectomy Medications: Reviewed. Allergies: Penicillin. Family History: No family history of premature CAD. No family history of lung disorders. Social History: Nonsmoker. No alcohol or illicit drug use. Family History: Cerebrovascular accident (CVA) G8 FATHER, Hypertension G8 FATHER, Allergies: Coded Allergies: Penicillins (Verified Allergy, Severe, 09/25/19) Home Meds Active Scripts Iron-Vitamin C (IRON 100/C) 1 Tab Tab, 1 TAB PO DAILY@BREAKFAST, #30 TAB Prov:TEE BUSTOS MD 10/21/24 Mupirocin (Pseudomonas Fluores (Mupirocin) 2 % Oin, 2 % NA BID for 10 Days, #1 OIN Prov:TEE BUSTOS MD 10/21/24 Tamsulosin Hcl (Flomax) 0.4 Mg Cap, 1 CAP PO DAILY, #30 CAP Prov:TEE BUSTOS MD 10/21/24 Finasteride (Finasteride) 5 Mg Tab, 1 TAB PO DAILY, #30 TAB 1 Refill Prov:TEE BUSTOS MD 10/21/24 Reported Medications Metoprolol Tartrate (Lopressor) 25 Mg Tb, 1 TAB PO DAILY for FOR SBP >115 10/20/24 Lisinopril (Lisinopril) 20 Mg Tab, 20 MG PO DAILY for 30 Days, MG 09/25/19 Amlodipine Besylate (Amlodipine Besylate) 5 Mg Tab, 10 MG PO DAILY for 30 Days, MG 09/25/19 Warfarin Sodium (Warfarin Sodium) 5 Mg Tab, 5 MG PO DAILY for 30 Days, MG 09/25/19 Simvastatin (Simvastatin) 20 Mg Tab, 20 MG PO DAILY for 30 Days 09/25/19 Doxazosin Mesylate (Doxazosin Mesylate) 4 Mg Tab, 4 MG PO DAILY, TAB 09/25/19 Current Medications Current Medications Medications (Trade) Dose Ordered Sig/Shawna Route PRN Reason Start Time Stop Time Status Last Admin Acetaminophen (Tylenol Tablet) 650 mg Q6HP PRN PO PAIN SCALE 1-3 OR TEMP>100.4 02/25/25 01:30 Acetaminophen/ Hydrocodone Bitart ([place] 5/325MG Tab) 1 tab Q6HP PRN PO MODERATE PAIN (4-6 PAIN SCALE) 02/25/25 01:30 Ondansetron HCl (Zofran) 4 mg Q4HP PRN IV NAUSEA / VOMITING 02/25/25 01:30 Nitroglycerin (Ntrostat Sublingual) 0.4 mg Q5MINP PRN SL FOR CHEST PAIN 02/25/25 01:30 Morphine Sulfate 2 mg Q30M PRN IV FOR CHEST PAIN 02/25/25 01:30 Metoprolol Tartrate (Lopressor Tablet) 25 mg DAILY PO 02/25/25 10:00 Albuterol (Ventolin Medneb) 2.5 mg Q4HP PRN NEB SHORTNESS OF BREATH 02/25/25 01:30 Ipratropium [place] (Atrovent Medneb) 0.5 mg Q4HPRN PRN NEB SHORTNESS OF BREATH 02/25/25 01:30 Tamsulosin HCl (Flomax) 0.4 mg DAILY PO 02/25/25 10:00 02/25/25 09:26 Phytonadione (vitamin K) 10 mg DAILY SUBCUT 02/26/25 10:00 02/25/25 15:43 DC Phytonadione (Vitamin K Oral Susp) 10 mg DAILY PO 02/26/25 10:00 Vital Signs Vital Signs Date Time Temp Pulse Resp B/P (MAP) Pulse Ox O2 Delivery O2 Flow Rate FiO2 02/25/25 16:37 97.8 84 18 124/74 (91) 96 97.8 02/25/25 10:46 Nasal Cannula* 3 32 Physical Exam Gen.: Patient lying in bed in no apparent distress. On supplemental oxygen. Head: Normocephalic, atraumatic. Eyes: EOMI/PERRLA. Ears: Normal hearing. Normal anatomy. Neck/trachea: Trachea midline, supple. Nose: Normal external anatomy. Mouth: Moist mucous membranes. Chest: Decreased air entry bilaterally. No wheezing or rhonchi. Cardiovascular: Positive S1, positive S2. Regular rate and rhythm. Abdomen: Positive bowel sounds in all 4 quadrants. Soft, non-tender, non- distended. : Deferred. Rectal: Deferred. Skin: Warm, dry. Intact. Extremities: 2+ radial pulses bilaterally. No lower extremity edema. Neuro: Awake, alert, oriented x3. No gross motor or sensory deficits. Cranial nerves II through XII intact. Gait not assessed. Labs/Diagnostic Data Labs Test 02/25/25 16:06 02/25/25 08:00 02/25/25 03:49 02/24/25 21:34 Range/Units Prothrombin Time 32.9 H 9.3-11.8 sec Prothrombin Time INR 3.52 H 0.9-1.15 Activated Partial Thromboplast Time 46.5 H 24.5-34.5 SEC Urine Color Yellow Yellow Urine Clarity Ex.turbid Clear Urine pH 8.5 5.0-9.0 Urine Specific [place] 1.019 1.001-1.035 Urine Protein 3+ H Negative Urine Ketones Negative Negative Urine Blood Negative Negative /uL Urine Nitrite 1+ H Negative Urine Bilirubin Negative Negative Urine Urobilinogen Normal Negative mg/dL Urine Leukocyte Esterase 3+ Negative /uL Urine RBC 7 0 - 3 /hpf Urine WBC Clumps Present None Seen /hpf Urine Microscopic WBC 20 H 0-3 /HPF Urine Squamous Epithelial Cells Few <5 /hpf Urine Triple Phosphate Crystals Mod None Seen /hpf Urine Bacteria Few H None Seen /hpf Urine Mucus Few None Seen Urine Glucose Normal Normal mg/dL White Blood Count 5.9 4.4-10.8 10^3/uL Red Blood Count 2.96 L 4.5-5.90 10^6/uL Hemoglobin 8.9 L 13.5-17.5 g/dL Hematocrit 27.2 L 41.0-53.0 % Mean Corpuscular Volume 91.8 80.0-100.0 fL Mean Corpuscular Hemoglobin 30.2 28.0-32.0 pg Mean Corpuscular Hemoglobin Concent 32.9 32.0-36.0 g/dL Red Cell Distribution Width 16.6 H 11.8-14.3 % Platelet Count 175 140-450 10^3/uL Mean Platelet Volume 8.3 6.9-10.8 fL Neutrophils (%) (Auto) 79.5 37.0-80.0 % Lymphocytes (%) (Auto) 11.2 10.0-50.0 % Monocytes (%) (Auto) 6.5 0.0-12.0 % Eosinophils (%) (Auto) 2.1 0.0-7.0 % Basophils (%) (Auto) 0.7 0.0-2.0 % Neutrophils # (Auto) 4.7 1.6-8.6 10 ^3/uL Lymphocytes # (Auto) 0.7 0.4-5.4 10 ^3/uL Monocytes # (Auto) 0.4 0-1.3 10 ^3/uL Eosinophils # (Auto) 0.1 0-0.8 10 ^3/uL Basophils # (Auto) 0 0-0.2 10 ^3/uL Nucleated Red Blood Cells 0.1 % Sodium Level 144 136-145 mmol/L Potassium Level 4.5 3.5-5.1 mmol/L Chloride Level 114 H 98-107 mmol/L Carbon Dioxide Level 20 20-31 mmol/L Anion Gap 10 5-15 Blood Urea Nitrogen 29 H 9-23 mg/dL Creatinine 1.68 H 0.700-1.30 mg/dL Glomerular Filtration Rate Calc 40 >90 mL/min BUN/Creatinine Ratio 17.3 10.0-20.0 Serum Glucose 94 74-106 mg/dL Calcium Level 9.8 8.7-10.4 mg/dL Total Bilirubin 0.8 0.2-1.0 mg/dL Aspartate Amino Transferase (AST) 23 13-40 U/L Alanine Aminotransferase (ALT) 10 7-40 U/L Alkaline Phosphatase 117 H 46-116 U/L B-Type Natriuretic Peptide 123.06 0-100 pg/mL Total Protein 6.6 5.7-8.2 g/dL Albumin 4.0 3.2-4.8 g/dL Assessment Impression: Acute hypoxic respiratory failure Dependence on supplemental oxygen Pleural effusion Atelectasis Dyspnea Chronic kidney disease Atrial fibrillation, on Coumadin Supra-therapeutic INR Plan: Supplemental oxygen Titrate to keep O2 sats above 92%. Taper O2 as tolerated. Vitamin K Will reassess INR in the AM. Chest U/S revealed small bilateral pleural effusions, right greater than left. Will re-evaluate in AM to assess if pleural fluid amenable for thoracentesis Bronchodilators PRN. Incentive spirometry Monitor renal function d/t CKD. Monitor electrolytes. Supplement as necessary. Monitor ins and outs. DVT prophylaxis. Prognosis: Poor given patient's multiple co-morbidities. Rest of plan per hospitalist and other consultants. Thank you, DOMONIQUE Ibrahim, for allowing me to participate in this patient's care. Further recommendations will depend on the patient's clinical course. Please do not hesitate to contact me if you have any questions or concerns. This medical document was created using an electronic medical record system with [employer] computerized dictation system. Although these documentations are being carefully reviewed, there may still be some phonetic and typographical changes. The errors are purely typographical, due to imperfection on the software program, and do not reflect any compromise in the patient's medical care. Plan discussed with: Patient, Other (TU Zapien/Chris/DOMONIQUE Ibrahim/) LEYDA CHAND MD Feb 25, 2025 19:46
[2025-02-26] VITALS (8 sets, daily range): BP systolic 109–130; BP diastolic 60–82; PULSE 74–84; RESP 17–18; TEMP 97.9–98.7; O2SAT 92–98
[2025-02-26 05:38] LABS: Hematocrit 26.3 % (41.0-53.0); Hemoglobin 8.7 g/dL (13.5-17.5); Mean Corpuscular Hemoglobin 30.3 pg (28.0-32.0); Mean Corpuscular Volume 91.2 fL (80.0-100.0); Nucleated Red Blood Cells % 0.0 %
[2025-02-26 05:46] LABS: Potassium 4.5 mmol/L (3.5-5.1); Sodium 144 mmol/L (136-145)
[2025-02-26 05:47] LABS: Anion Gap 11 (5-15); Calcium 9.0 mg/dL (8.7-10.4); Carbon Dioxide 20 mmol/L (20-31)
[2025-02-26 05:52] LABS: BUN/Creatinine Ratio 19.5 (10.0-20.0); Glucose 89 mg/dL (74-106)
[2025-02-26 05:58] LABS: Blood Urea Nitrogen 30 mg/dL (9-23); Chloride 113 mmol/L (98-107)
[2025-02-26] MEDS: PHYTONADIONE(VitK) ORAL Susp 10mg/10ml(1mg/ml) PO SCH (10:00)
[2025-02-26] MEDS ORDERED: PHYTONADIONE (VIT K)10 MG/ML 1ML VIAL SUBCUT SCH (10:00)
[2025-02-26 11:04] LABS: INR 2.0 (0.9-1.15); Prothrombin Time 19.8 sec (9.3-11.8)
[2025-02-26] MEDS: FUROSEMIDE 40 MG/4 ML VIAL IV ONE (14:10)
--- NOTE | 2025-02-26 14:22 | DVHINCON2 ---
MARYAM RIDLEY RESDIENT 02/26/25 1422: Date Seen: Feb 26, 2025 History of Present Illness This is an 84-year-old male with past medical history of TAVR, permanent AFib (on warfarin), hypertension, dyslipidemia, BPH came to the hospital due to shortness of breaths. Per patient he has shortness of breath since 08/26 which has progressively worsened and prompted this visit. He also complained of generalized weakness and cough. He denies fever, chest pain, palpitation, or any recent sick contact. PMHx: TAVR, permanent AFib (on warfarin), hypertension, dyslipidemia, BPH Social history: Ex-smoker, denies any current drug use Home medication: Finasteride, doxazosin, lisinopril, metoprolol, simvastatin, and warfarin Allergic history: Penicillins Patient seen and examined at the bedside. Patient is still complaining of shortness of breaths. Family History: Cerebrovascular accident (CVA) G8 FATHER, Hypertension G8 FATHER, Allergies: Coded Allergies: Penicillins (Verified Allergy, Severe, 09/25/19) Home Meds Active Scripts Iron-Vitamin C (IRON 100/C) 1 Tab Tab, 1 TAB PO DAILY@BREAKFAST, #30 TAB Prov:TEE BUSTOS MD 10/21/24 Mupirocin (Pseudomonas Fluores (Mupirocin) 2 % Oin, 2 % NA BID for 10 Days, #1 OIN Prov:TEE BUSTOS MD 10/21/24 Tamsulosin Hcl (Flomax) 0.4 Mg Cap, 1 CAP PO DAILY, #30 CAP Prov:TEE BUSTOS MD 10/21/24 Finasteride (Finasteride) 5 Mg Tab, 1 TAB PO DAILY, #30 TAB 1 Refill Prov:TEE BUSTOS MD 10/21/24 Reported Medications Metoprolol Tartrate (Lopressor) 25 Mg Tb, 1 TAB PO DAILY for FOR SBP >115 10/20/24 Lisinopril (Lisinopril) 20 Mg Tab, 20 MG PO DAILY for 30 Days, MG 09/25/19 Amlodipine Besylate (Amlodipine Besylate) 5 Mg Tab, 10 MG PO DAILY for 30 Days, MG 09/25/19 Warfarin Sodium (Warfarin Sodium) 5 Mg Tab, 5 MG PO DAILY for 30 Days, MG 09/25/19 Simvastatin (Simvastatin) 20 Mg Tab, 20 MG PO DAILY for 30 Days 09/25/19 Doxazosin Mesylate (Doxazosin Mesylate) 4 Mg Tab, 4 MG PO DAILY, TAB 09/25/19 Current Medications Current Medications Medications (Trade) Dose Ordered Sig/Shawna Route PRN Reason Start Time Stop Time Status Last Admin Phytonadione (vitamin K) 10 mg DAILY SUBCUT 02/26/25 10:00 02/25/25 15:43 DC Phytonadione (Vitamin K Oral Susp) 10 mg DAILY PO 02/26/25 10:00 02/26/25 10:00 Furosemide (Lasix Injection) 40 mg DAILY IV 02/27/25 10:00 Vital Signs Vital Signs Date Time Temp Pulse Resp B/P (MAP) Pulse Ox O2 Delivery O2 Flow Rate FiO2 02/26/25 14:10 130/88 02/26/25 10:00 78 02/26/25 09:00 97.9 18 97 97.9 02/26/25 08:00 Nasal Cannula* 3 32 Physical Exam General Appearance: Alert, Oriented X3, Cooperative, No acute distress HEENT: Atraumatic, PERRLA, EOMI, Mucous membrane moist/pink Respiratory: Decreased breath sound on right lower zone, and left mid and lower zone. Cardiovascular: Regular rate, Normal S1, Normal S2, No murmurs, no chest wall tenderness Abdominal: Normal bowel sounds, Soft, No tenderness, No hepatospenomegaly, No masses Extremities: Bilateral grade 2-3 pitting pedal edema Skin: No rashes, No breakdown, No significant lesion Neuro: Normal gait, Normal speech, Strength at 5/5 X4 ext, Normal tone, Sensation intact, Cranial nerves 3-12 NL, Reflexes 2+ Psych/Mental Status: Mental status NL, Mood NL Labs/Diagnostic Data Labs Test 02/26/25 10:15 02/26/25 05:10 02/25/25 16:06 02/25/25 08:00 Range/Units Prothrombin Time 19.8 H 9.3-11.8 sec Prothrombin Time INR 2.00 H 0.9-1.15 White Blood Count 6.2 4.4-10.8 10^3/uL Red Blood Count 2.88 L 4.5-5.90 10^6/uL Hemoglobin 8.7 L 13.5-17.5 g/dL Hematocrit 26.3 L 41.0-53.0 % Mean Corpuscular Volume 91.2 80.0-100.0 fL Mean Corpuscular Hemoglobin 30.3 28.0-32.0 pg Mean Corpuscular Hemoglobin Concent 33.2 32.0-36.0 g/dL Red Cell Distribution Width 16.1 H 11.8-14.3 % Platelet Count 177 140-450 10^3/uL Mean Platelet Volume 8.1 6.9-10.8 fL Neutrophils (%) (Auto) 80.1 H 37.0-80.0 % Lymphocytes (%) (Auto) 10.8 10.0-50.0 % Monocytes (%) (Auto) 6.7 0.0-12.0 % Eosinophils (%) (Auto) 1.9 0.0-7.0 % Basophils (%) (Auto) 0.5 0.0-2.0 % Neutrophils # (Auto) 5.0 1.6-8.6 10 ^3/uL Lymphocytes # (Auto) 0.7 0.4-5.4 10 ^3/uL Monocytes # (Auto) 0.4 0-1.3 10 ^3/uL Eosinophils # (Auto) 0.1 0-0.8 10 ^3/uL Basophils # (Auto) 0 0-0.2 10 ^3/uL Nucleated Red Blood Cells 0.0 % Sodium Level 144 136-145 mmol/L Potassium Level 4.5 3.5-5.1 mmol/L Chloride Level 113 H 98-107 mmol/L Carbon Dioxide Level 20 20-31 mmol/L Anion Gap 11 5-15 Blood Urea Nitrogen 30 H 9-23 mg/dL Creatinine 1.54 H 0.700-1.30 mg/dL Glomerular Filtration Rate Calc 44 >90 mL/min BUN/Creatinine Ratio 19.5 10.0-20.0 Serum Glucose 89 74-106 mg/dL Calcium Level 9.0 8.7-10.4 mg/dL Activated Partial Thromboplast Time 46.5 H 24.5-34.5 SEC Urine Color Yellow Yellow Urine Clarity Ex.turbid Clear Urine pH 8.5 5.0-9.0 Urine Specific [place] 1.019 1.001-1.035 Urine Protein 3+ H Negative Urine Ketones Negative Negative Urine Blood Negative Negative /uL Urine Nitrite 1+ H Negative Urine Bilirubin Negative Negative Urine Urobilinogen Normal Negative mg/dL Urine Leukocyte Esterase 3+ Negative /uL Urine RBC 7 0 - 3 /hpf Urine WBC Clumps Present None Seen /hpf Urine Microscopic WBC 20 H 0-3 /HPF Urine Squamous Epithelial Cells Few <5 /hpf Urine Triple Phosphate Crystals Mod None Seen /hpf Urine Bacteria Few H None Seen /hpf Urine Mucus Few None Seen Urine Glucose Normal Normal mg/dL Test 02/24/25 21:34 Range/Units Total Bilirubin 0.8 0.2-1.0 mg/dL Aspartate Amino Transferase (AST) 23 13-40 U/L Alanine Aminotransferase (ALT) 10 7-40 U/L Alkaline Phosphatase 117 H 46-116 U/L B-Type Natriuretic Peptide 123.06 0-100 pg/mL Total Protein 6.6 5.7-8.2 g/dL Albumin 4.0 3.2-4.8 g/dL Assessment ? Acute systolic heart failure Volume overload, likely due to above Acute hypoxic respiratory failure, likely due to above Pleural effusion Status post TAVR Permanent AFib on warfarin Hypertension Dyslipidemia BPH Moderate anemia, normocytic normochromic EDWAR, likely on CKD, VMN * EKGs shows LBBB pattern with AFib with no significant ST or T-wave changes * Chest x-ray shows bilateral pleural effusion more on the left side * BNP is mildly raised at 123 Plan/recommendation * IV diuretic Lasix 40 mg daily * Check echocardiogram * We will adjust GDMD based on echo finding and patient's hemodynamic status * Follow up with the seed corn production manager for thoracentesis * We will follow up with the patient * Rest of plan per primary team Thank you for giving us the opportunity to take care of your patient, please call back if you have any question/concern. Plan discussed with: Patient, Other (RN) NYHA Physical activity limitations: Class4(Severe)discomfort Date of Service: Feb 26, 2025 Billing Provider: AINSLEY LOPEZ MD Cardiology Common Codes: 18657-[id number] INP/OBS CARE (High) AINSLEY LOPEZ MD 02/27/25 0655: Family History: Cerebrovascular accident (CVA) G8 FATHER, Hypertension G8 FATHER, Allergies: Coded Allergies: Penicillins (Verified Allergy, Severe, 09/25/19) Home Meds Active Scripts Iron-Vitamin C (IRON 100/C) 1 Tab Tab, 1 TAB PO DAILY@BREAKFAST, #30 TAB Prov:TEE BUSTOS MD 10/21/24 Mupirocin (Pseudomonas Fluores (Mupirocin) 2 % Oin, 2 % NA BID for 10 Days, #1 OIN Prov:TEE BUSTOS MD 10/21/24 Tamsulosin Hcl (Flomax) 0.4 Mg Cap, 1 CAP PO DAILY, #30 CAP Prov:TEE BUSTOS MD 10/21/24 Finasteride (Finasteride) 5 Mg Tab, 1 TAB PO DAILY, #30 TAB 1 Refill Prov:TEE BUSTOS MD 10/21/24 Reported Medications Metoprolol Tartrate (Lopressor) 25 Mg Tb, 1 TAB PO DAILY for FOR SBP >115 10/20/24 Lisinopril (Lisinopril) 20 Mg Tab, 20 MG PO DAILY for 30 Days, MG 09/25/19 Amlodipine Besylate (Amlodipine Besylate) 5 Mg Tab, 10 MG PO DAILY for 30 Days, MG 09/25/19 Warfarin Sodium (Warfarin Sodium) 5 Mg Tab, 5 MG PO DAILY for 30 Days, MG 09/25/19 Simvastatin (Simvastatin) 20 Mg Tab, 20 MG PO DAILY for 30 Days 09/25/19 Doxazosin Mesylate (Doxazosin Mesylate) 4 Mg Tab, 4 MG PO DAILY, TAB 09/25/19 Plan/Recommendation office pt of [facility] s/p tavr non critical cad large pleural effusion needs thoracentesis INR is high Plan discussed with: Patient DOUGMAIRATANESHA BABINFREEMAN RESSAEED Feb 26, 2025 14:22 AINSLEY LOPEZ MD Feb 27, 2025 06:55
--- NOTE | 2025-02-26 18:40 | DVH ---
EXAM: XY CHEST XRAY 1 VIEW Indication: s/p left thoracentesis Technique: Single frontal view of the chest was obtained Comparison: XY CHEST XRAY 1 VIEW on DOS: 02/24/25 FINDINGS: Lines and Tubes: None Lungs: Interval decrease in moderate size left pleural effusion. Left basilar opacity. Trace right p leural effusion. No pneumothorax. Cardiomediastinal contours: Obscured. Bones: No acute osseous abnormality. IMPRESSION: Interval decrease in moderate size left pleural effusion. Left basilar opacity. Trace right pleural effusion.
--- NOTE | 2025-02-26 18:59 | DVHNC2 ---
Procedure - Ultrasound-guided LEFT thoracentesis procedure note: Physician: Dr Alice Miranda Date: 02/26/2025 Time out time: 1815pm Patient medications and allergies reviewed. The risks and benefits of the procedure and the sedation options and risk were discussed with the patient's healthcare proxy. All questions were answered and informed consent was obtained. Patient identification and proposed procedure were verified prior to the procedure by the physician, and a nurse in the patient's room. The heart rate, respiratory rate, oxygen saturations, blood pressure, adequacy of pulmonary ventilation, and response to care were monitored throughout the procedure. The physical status of the patient was reassessed after the procedure. Consent: Consent was obtained from patient prior to procedure. Indication, risks, and benefits were explained at length. Procedure summary: A time-out was performed and a chest x-ray was reviewed prior to procedure. The appropriate site was confirmed and marked. My hands were washed immediately felisha or to the procedure, I wore a surgical cap, mask with protective eyewear, sterile gown and sterile gloves throughout the procedure. The patient was prepped and draped in a sterile manner using chlorhexidine scrub after the appropriate level was percussed and confirmed by ultrasound. 1% lidocaine was used to anesthetize the skin, subcutaneous tissue, superior aspect of the rib periosteum and parietal pleura. A finder needle was then introduced over the superior aspect of the rib to locate the pleural fluid; sanguinous fluid was aspirated. Thoracentesis needle was then introduced through the skin incision into the pleural space using negative aspiration pressure. The thoracentesis catheter was then threaded without difficulty. 2000 mL's of sanguinous colored fluid were removed without difficulty. The catheter was then removed. No immediate complications were noted during the procedure. A post-procedure chest x-ray is pending at the time of this note. The pleural fluid will be sent for cultures and cytology. Estimated blood loss is less than 5 mL's. CPT: 33966 LEYDA MIRANDA MD Feb 26, 2025 18:59
[2025-02-26 19:07] LABS: Hematocrit 26.9 % (41.0-53.0); Hemoglobin 8.8 g/dL (13.5-17.5); Mean Corpuscular Hemoglobin 29.5 pg (28.0-32.0); Mean Corpuscular Volume 90.5 fL (80.0-100.0); Nucleated Red Blood Cells % 0.1 %
--- NOTE | 2025-02-26 23:55 | DVHPN2 ---
Progress Note - Dictate Date Seen: Feb 26, 2025 Medical Necessity Reason Pt with a Central, PICC or Fol: Yes The following are medically ne: Kay Catheter Reason for kay catheter: Strict I&O Subjective Patient seen and examined at bedside. Remains on supplemental oxygen Overnight events reviewed. vital signs Vital Sign Date Time Temp Pulse Resp B/P (MAP) Pulse Ox O2 Delivery O2 Flow Rate FiO2 02/26/25 21:00 98.7 78 18 109/65 (80) 98 98.7 02/26/25 20:00 Nasal Cannula* 3 32 Total Intake and Output 02/25/25 02/25/25 02/26/25 15:00 23:00 07:00 Intake Total 100 ml 200 ml Output Total 150 ml Balance -50 ml 200 ml medications Current Medications Medications Dose Ordered Sig/Shawna Route Start Time Stop Time Status Last Admin Dose Admin Acetaminophen 650 mg Q6HP PRN PO 02/25/25 01:30 Acetaminophen/ Hydrocodone Bitart 1 tab Q6HP PRN PO 02/25/25 01:30 Ondansetron HCl 4 mg Q4HP PRN IV 02/25/25 01:30 Nitroglycerin 0.4 mg Q5MINP PRN SL 02/25/25 01:30 Morphine Sulfate 2 mg Q30M PRN IV 02/25/25 01:30 Metoprolol Tartrate 25 mg DAILY PO 02/25/25 10:00 Albuterol 2.5 mg Q4HP PRN NEB 02/25/25 01:30 Ipratropium [place] 0.5 mg Q4HPRN PRN NEB 02/25/25 01:30 Tamsulosin HCl 0.4 mg DAILY PO 02/25/25 10:00 02/26/25 10:50 0.4 MG Phytonadione 10 mg DAILY PO 02/26/25 10:00 02/26/25 10:00 10 MG Furosemide 40 mg DAILY IV 02/27/25 10:00 objective Gen.: Patient lying in bed in no apparent distress. On supplemental oxygen. Head: Normocephalic, atraumatic. Eyes: EOMI/PERRLA. Ears: Normal hearing. Normal anatomy. Neck/trachea: Trachea midline, supple. Nose: Normal external anatomy. Mouth: Moist mucous membranes. Chest: Decreased air entry bilaterally. No wheezing or rhonchi. Cardiovascular: Positive S1, positive S2. Regular rate and rhythm. Abdomen: Positive bowel sounds in all 4 quadrants. Soft, non-tender, non- distended. : Deferred. Rectal: Deferred. Skin: Warm, dry. Intact. Extremities: 2+ radial pulses bilaterally. No lower extremity edema. Neuro: Awake, alert, oriented x3. No gross motor or sensory deficits. Cranial nerves II through XII intact. Gait not assessed. laboratory and microbiology Laboratory Tests 02/26/25 18:41 02/26/25 05:10 Test 02/26/25 05:10 Range/Units Serum Glucose 89 74-106 mg/dL Assessment/Plan Impression: Acute hypoxic respiratory failure Dependence on supplemental oxygen Pleural effusion Atelectasis Dyspnea Chronic kidney disease Atrial fibrillation, on Coumadin Supra-therapeutic INR Events: Remains on supplemental oxygen, 3 LPM NC Taper O2 as tolerated Plan for left thoracentesis for evacuation of moderate left pleural effusion. Bronchodilators PRN. Incentive spirometry Diurese with Lasix as tolerated Monitor renal function - creatinine trending down Monitor electrolytes. Supplement as necessary. Monitor hemoglobin - 8.7 g/dL currently Transfuse if less than 7.0 g/dL. INR of 2.0, improved. Labs and imaging reviewed. Rest of plan as noted below. Plan: Supplemental oxygen Titrate to keep O2 sats above 92%. Taper O2 as tolerated. Received Vitamin K INR improved Bronchodilators PRN. Incentive spirometry Diurese to euvolemia Monitor renal function d/t CKD. Monitor electrolytes. Supplement as necessary. Monitor ins and outs. DVT prophylaxis. Prognosis: Guarded given patient's multiple co-morbidities. Rest of plan per hospitalist and other consultants. Thank you, DOMONIQUE Ibrahim, for allowing me to participate in this patient's care. Further recommendations will depend on the patient's clinical course. Please do not hesitate to contact me if you have any questions or concerns. This medical document was created using an electronic medical record system with [employer] dictation system. Although these documentations are being carefully reviewed, there may still be some phonetic and typographical changes. The errors are purely typographical, due to imperfection on the software program, and do not reflect any compromise in the patient's medical care. Plan discussed with: Patient, Other (TU Denson) LEYDA CHAND MD Feb 26, 2025 23:55
[2025-02-27] VITALS (11 sets, daily range): BP systolic 100–114; BP diastolic 53–86; PULSE 66–105; RESP 16–20; TEMP 98.2–99.1; O2SAT 93–98
[2025-02-27 06:30] LABS: Hematocrit 26.5 % (41.0-53.0); Hemoglobin 8.9 g/dL (13.5-17.5); Mean Corpuscular Hemoglobin 30.6 pg (28.0-32.0); Mean Corpuscular Volume 91.1 fL (80.0-100.0); Nucleated Red Blood Cells % 0.0 %
[2025-02-27 06:37] LABS: Anion Gap 12 (5-15); Calcium 9.6 mg/dL (8.7-10.4); Carbon Dioxide 20 mmol/L (20-31); Potassium 4.3 mmol/L (3.5-5.1); Sodium 145 mmol/L (136-145)
[2025-02-27 06:39] LABS: INR 1.31 (0.9-1.15); Prothrombin Time 13.5 sec (9.3-11.8)
--- NOTE | 2025-02-27 06:41 | DVHSR ---
APPROVED REPORT EXAM: Two-dimensional and M-mode echocardiogram with Doppler and color Doppler. Blood Pressure: 130/88 mmHg INDICATION CHF? RISK FACTORS Height: 65, Weight: 159 DIMENSIONS LVDd4.6 (3.8-5.7cm)LA (2D) (1.9-4.0cm)Aortic Root (2.0-3.7cm) LVDs3.2 (2.5-4.0cm)LA (MM) (1.9-4.0cm)Aortic Cusp Exc (1.5-2.0cm) EF (%) 55.0 (55-70%)Rt. Atrium (1.9-4.0cm)Asc. Aorta cm Mitral Valve MitralMitral Stenosis E wave0.91m/sMV Mean GR.mmHg A wavem/sMV Peak GR.93mmHg E/A ratio0.02D MVAcm2 Aortic Valve Aortic ValveAortic Stenosis V11.12m/Cee Mean GR.10mmHg V22.06m/Cee Peak GR.17mmHg AI P 1/2 Ciyn946.40ms Other Information Technically limited study due to body habitus. Patient refused to lay in bed. Patient sitting up in chair during exam. Conclusion VERY LIMITED STUDY LVEF 40% WITH WMA RV NOT WELL SEEN LEFT ATRIUM ENLARGED TRIVIAL TO SMALL PERICARDIAL EFFUSION NOTED SIGNIFICANT LEFT SIDED PLEURAL EFFUSION NOTED , LIMITS CV EVAL ASCITES ? SUSPECTED S/P TAVR, MEAN GRADIENT OF 10 MMHG, LIMITED VIEW valves not well assessed
[2025-02-27 06:43] LABS: BUN/Creatinine Ratio 19.0 (10.0-20.0); Glucose 96 mg/dL (74-106)
[2025-02-27 06:56] LABS: Blood Urea Nitrogen 30 mg/dL (9-23); Chloride 113 mmol/L (98-107)
--- NOTE | 2025-02-27 08:12 | DVHPN2 ---
Progress Note Date Seen: Feb 27, 2025 Medical Necessity Reason Pt with a Central, PICC or Fol: Yes The following are medically ne: Kay Catheter Reason for kay catheter: Strict I&O Subjective Patient reports: Feels better Other Systems: sp thora Objective vital signs Vital Sign Date Time Temp Pulse Resp B/P (MAP) Pulse Ox O2 Delivery O2 Flow Rate FiO2 02/27/25 07:46 17 Nasal Cannula* 3 32 02/27/25 05:00 98.9 85 112/65 (81) 98 98.9 Total Intake and Output 02/26/25 02/26/25 02/27/25 15:00 23:00 07:00 Intake Total 850 ml 50 ml Output Total 900 ml 150 ml Balance -50 ml -100 ml medications Current Medications Medications Dose Ordered Sig/Shawna Route Start Time Stop Time Status Last Admin Dose Admin Acetaminophen 650 mg Q6HP PRN PO 02/25/25 01:30 Acetaminophen/ Hydrocodone Bitart 1 tab Q6HP PRN PO 02/25/25 01:30 Ondansetron HCl 4 mg Q4HP PRN IV 02/25/25 01:30 Nitroglycerin 0.4 mg Q5MINP PRN SL 02/25/25 01:30 Morphine Sulfate 2 mg Q30M PRN IV 02/25/25 01:30 Metoprolol Tartrate 25 mg DAILY PO 02/25/25 10:00 Albuterol 2.5 mg Q4HP PRN NEB 02/25/25 01:30 Ipratropium [place] 0.5 mg Q4HPRN PRN NEB 02/25/25 01:30 Tamsulosin HCl 0.4 mg DAILY PO 02/25/25 10:00 02/26/25 10:50 0.4 MG Phytonadione 10 mg DAILY PO 02/26/25 10:00 02/26/25 10:00 10 MG Furosemide 40 mg DAILY IV 02/27/25 10:00 Examination: GENERAL:Abnormal, HEENT:Abnormal, LUNGS:Abnormal, CVS:Abnormal, ABDOMEN:Abnormal laboratory and microbiology Laboratory Tests 02/27/25 05:26 Test 02/27/25 05:26 Range/Units Serum Glucose 96 74-106 mg/dL Problem List/Assessment/Plan Problem List/Assessment/Plan anasarca large pleural effusion ascites? s/p tavr repeat thoracentesis today given large volume consider paracentesis if possible, abd is disteneded recommend 1 more day of diuresis, pt will consider this with dr benitez as he is very overloaded still Plan discussed with: Patient Date of Service: Feb 27, 2025 Billing Provider: AINSLEY LOPEZ MD Common Visit Codes: NOT BILLABLE AINSLEY LOPEZ MD Feb 27, 2025 08:12
[2025-02-27] MEDS: FUROSEMIDE 40 MG/4 ML VIAL IV SCH (09:47)
--- NOTE | 2025-02-27 13:50 | DVH ---
EXAM: US ABDOMEN LIMITED CLINICAL HISTORY: Ascites TECHNIQUE: Grayscale and limited color flow doppler ultrasound of the abdomen is performed. COMPARISON: None Findings/Impression: No evidence of ascites. Bilateral pleural effusions. 15.4 x 13.1 x 15.5 cm right hepatic cyst.
--- NOTE | 2025-02-27 16:49 | DVHNC2 ---
Procedure - Ultrasound-guided LEFT thoracentesis procedure note: Physician: Dr Alice Miranda Date: 02/27/2025 Time: 1615 Consent: Consent was obtained from patient prior to procedure. Indication, risks, and benefits were explained at length. Procedure summary: A time out was performed and a chest x-ray was reviewed prior to procedure. The appropriate site was confirmed and marked. My hands were washed immediately prior to the procedure, I wore a surgical cap, mask with protective eyewear, sterile gown and sterile gloves throughout the procedure. The patient was prepped and draped in a sterile manner using chlorhexidine scrub after the appropriate level was percussed and confirmed by ultrasound. 1% lidocaine was used to anesthetize the skin, subcutaneous tissue, superior aspect of the rib periosteum and parietal pleura. A finder needle was then introduced over the superior aspect of the rib to locate the pleural fluid; sero-sanguinous fluid wa s aspirated. Thoracentesis needle was then introduced through the skin incision into the pleural space using negative aspiration pressure. The thoracentesis catheter was then threaded without difficulty. 750 mL's of sero-sanguinous colored fluid were removed without difficulty. The catheter was then removed. No immediate complications were noted during the procedure. A postprocedure chest x-ray is pending at the time of this note. Estimated blood loss is less than 5 mL's. CPT: 26948 LEYDA MIRANDA MD Feb 27, 2025 16:49
[2025-02-27] MEDS: WARFARIN SODIUM 5 MG TAB PO ONE (17:00)
--- NOTE | 2025-02-27 17:41 | DVHPN2 ---
Subjective Overnight events noted. Patient is feeling much better. Patient has had 2nd thoracentesis today in which 750 mL was removed. Coumadin will be resumed Changes from previous H/P or p: No Changes Eyes: No Pain, No Vision change, No Conjunctivae inflammation, No Eyelid inflammation, No Other, No Redness ENT: No Ear pain, No Ear discharge, No Nose pain, No Nose discharge, No Nose congestion, No Mouth pain, No Mouth swelling, No Throat pain, No Throat swelling, No Other Cardiovascular: No Chest Pain, No Palpitations, No Orthopnea, No Paroxysmal Noc. Dyspnea, No Edema, No Lt Headedness, No Other Respiratory: No Cough, No Dry; Shortness of breath, SOB with excertion; No Wheezing, No Hemoptysis, No Pleuritic Pain, No Sputum, No Other Gastrointestinal: No Nausea, No Vomiting, No Abdominal Pain, No Diarrhea, No Constipation, No Melena, No Hematochezia, No Other Genitourinary: No Dysuria, No Frequency, No Incontinence, No Hematuria, No Retention, No Other Musculoskeletal: No other, No neck pain, No shoulder pain, No arm pain, No back pain, No hand pain, No leg pain, No foot pain Skin: No Rash, No Lesions, No Jaundice, No Bruising, No Other Objective Vitals Vital Signs Date Time Temp Pulse Resp B/P (MAP) Pulse Ox O2 Delivery O2 Flow Rate FiO2 02/27/25 16:34 99.1 78 18 100/60 (73) 94 99.1 02/27/25 09:14 Room Air 0.0 02/27/25 09:14 21 Intake/Output Intake and Output 02/27/25 07:00 Intake Total 900 ml Output Total 1050 ml Balance -150 ml Intake Oral 900 ml Output Urine Total 1050 ml Exam HEENT pupils are reactive Neck is supple CV is S1-S2 regular rate and rhythm Respiratory diminished breath sounds bilateral bases GI positive bowel sound Extremity two to 3+ pitting edema. 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 Medications Current Medications Medications Dose Ordered Sig/Shawna Route Start Time Stop Time Status Last Admin Dose Admin Acetaminophen 650 mg Q6HP PRN PO 02/25/25 01:30 Acetaminophen/ Hydrocodone Bitart 1 tab Q6HP PRN PO 02/25/25 01:30 Ondansetron HCl 4 mg Q4HP PRN IV 02/25/25 01:30 Nitroglycerin 0.4 mg Q5MINP PRN SL 02/25/25 01:30 Morphine Sulfate 2 mg Q30M PRN IV 02/25/25 01:30 Metoprolol Tartrate 25 mg DAILY PO 02/25/25 10:00 02/27/25 09:47 25 MG Albuterol 2.5 mg Q4HP PRN NEB 02/25/25 01:30 Ipratropium [place] 0.5 mg Q4HPRN PRN NEB 02/25/25 01:30 Tamsulosin HCl 0.4 mg DAILY PO 02/25/25 10:00 02/27/25 09:47 0.4 MG Phytonadione 10 mg DAILY PO 02/26/25 10:00 02/26/25 10:00 10 MG Furosemide 40 mg DAILY IV 02/27/25 10:00 02/27/25 09:47 40 MG Laboratory Results Laboratory Tests 02/27/25 05:26 Chemistry Test 02/27/25 05:26 Calcium Level 9.6 mg/dL (8.7-10.4) Coagulation Test 02/27/25 05:26 Prothrombin Time 13.5 sec (9.3-11.8) H Prothrombin Time INR 1.31 (0.9-1.15) H Urinalysis Test 02/25/25 08:00 Urine Color Yellow (Yellow) Urine Clarity Ex.turbid (Clear) Urine pH 8.5 (5.0-9.0) Urine Specific [place] 1.019 (1.001-1.035) Urine Protein 3+ (Negative) H Urine Ketones Negative (Negative) Urine Blood Negative /uL (Negative) Urine Nitrite 1+ (Negative) H Urine Bilirubin Negative (Negative) Urine Urobilinogen Normal mg/dL (Negative) Urine Leukocyte Esterase 3+ /uL (Negative) Urine RBC 7 /hpf (0 - 3) Urine WBC Clumps Present /hpf (None Seen) Urine Microscopic WBC 20 /HPF (0-3) H Urine Squamous Epithelial Cells Few /hpf (<5) Urine Triple Phosphate Crystals Mod /hpf (None Seen) Urine Bacteria Few /hpf (None Seen) H Urine Mucus Few (None Seen) Urine Glucose Normal mg/dL (Normal) Microbiology Microbiology Date/Time Source Procedure Growth Status 02/26/25 18:00 Pleural Fluid Gram Stain - Final Resulted 02/26/25 18:00 Pleural Fluid Body Fluid Culture - Preliminary Resulted Assessment/Plan Assessment/Plan 84-year-old male with a known history of BPH, CKD, chronic AFib on Coumadin, history of cardiac valve prosthesis presented to the hospital with the increasing shortness a breath found to have 1. Progressive Shortness of breaths/dyspnea on exertion secondary to left-sided pleural effusion 2. Left-sided pleural effusion 3. Secondary coagulopathy due to warfarin status post vitamin K subQ 4. Chronic AFib 5. History of cardiac prosthetic valve 6. BPH -resume Coumadin patient is status post left-sided thoracentesis x2. Plan discussed with: Patient My Orders Orders - RAGHAV SORIANO MD Procedure Category Date Status Time Abdomen Limited US 02/27/25 Resulted 12:33 Date of Service: Feb 27, 2025 Billing Provider: RAGHAV SORIANO MD Common Visit Codes: NOT BILLABLE RAGHAV SORIANO MD Feb 27, 2025 17:41
--- NOTE | 2025-02-27 17:43 | DVHPN2 ---
Subjective Overnight events noted. Patient is feeling much better as he had a thoracentesis left-sided in which 2 L was removed. Changes from previous H/P or p: No Changes Eyes: No Pain, No Vision change, No Conjunctivae inflammation, No Eyelid inflammation, No Other, No Redness ENT: No Ear pain, No Ear discharge, No Nose pain, No Nose discharge, No Nose congestion, No Mouth pain, No Mouth swelling, No Throat pain, No Throat swelling, No Other Cardiovascular: No Chest Pain, No Palpitations, No Orthopnea, No Paroxysmal Noc. Dyspnea, No Edema, No Lt Headedness, No Other Respiratory: No Cough, No Dry; Shortness of breath, SOB with excertion; No Wheezing, No Hemoptysis, No Pleuritic Pain, No Sputum, No Other Gastrointestinal: No Nausea, No Vomiting, No Abdominal Pain, No Diarrhea, No Constipation, No Melena, No Hematochezia, No Other Genitourinary: No Dysuria, No Frequency, No Incontinence, No Hematuria, No Retention, No Other Musculoskeletal: No other, No neck pain, No shoulder pain, No arm pain, No back pain, No hand pain, No leg pain, No foot pain Skin: No Rash, No Lesions, No Jaundice, No Bruising, No Other Objective Vitals Vital Signs Date Time Temp Pulse Resp B/P (MAP) Pulse Ox O2 Delivery O2 Flow Rate FiO2 02/27/25 16:34 99.1 78 18 100/60 (73) 94 99.1 02/27/25 09:14 Room Air 0.0 02/27/25 09:14 21 Intake/Output Intake and Output 02/27/25 07:00 Intake Total 900 ml Output Total 1050 ml Balance -150 ml Intake Oral 900 ml Output Urine Total 1050 ml Exam HEENT pupils are reactive Neck is supple CV is S1-S2 regular rate and rhythm Respiratory diminished breath sounds bilateral bases GI positive bowel sound Extremity two to 3+ 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 Medications Current Medications Medications Dose Ordered Sig/Shawna Route Start Time Stop Time Status Last Admin Dose Admin Acetaminophen 650 mg Q6HP PRN PO 02/25/25 01:30 Acetaminophen/ Hydrocodone Bitart 1 tab Q6HP PRN PO 02/25/25 01:30 Ondansetron HCl 4 mg Q4HP PRN IV 02/25/25 01:30 Nitroglycerin 0.4 mg Q5MINP PRN SL 02/25/25 01:30 Morphine Sulfate 2 mg Q30M PRN IV 02/25/25 01:30 Metoprolol Tartrate 25 mg DAILY PO 02/25/25 10:00 02/27/25 09:47 25 MG Albuterol 2.5 mg Q4HP PRN NEB 02/25/25 01:30 Ipratropium [place] 0.5 mg Q4HPRN PRN NEB 02/25/25 01:30 Tamsulosin HCl 0.4 mg DAILY PO 02/25/25 10:00 02/27/25 09:47 0.4 MG Phytonadione 10 mg DAILY PO 02/26/25 10:00 02/26/25 10:00 10 MG Furosemide 40 mg DAILY IV 02/27/25 10:00 02/27/25 09:47 40 MG Laboratory Results Laboratory Tests 02/27/25 05:26 Chemistry Test 02/27/25 05:26 Calcium Level 9.6 mg/dL (8.7-10.4) Coagulation Test 02/27/25 05:26 Prothrombin Time 13.5 sec (9.3-11.8) H Prothrombin Time INR 1.31 (0.9-1.15) H Urinalysis Test 02/25/25 08:00 Urine Color Yellow (Yellow) Urine Clarity Ex.turbid (Clear) Urine pH 8.5 (5.0-9.0) Urine Specific [place] 1.019 (1.001-1.035) Urine Protein 3+ (Negative) H Urine Ketones Negative (Negative) Urine Blood Negative /uL (Negative) Urine Nitrite 1+ (Negative) H Urine Bilirubin Negative (Negative) Urine Urobilinogen Normal mg/dL (Negative) Urine Leukocyte Esterase 3+ /uL (Negative) Urine RBC 7 /hpf (0 - 3) Urine WBC Clumps Present /hpf (None Seen) Urine Microscopic WBC 20 /HPF (0-3) H Urine Squamous Epithelial Cells Few /hpf (<5) Urine Triple Phosphate Crystals Mod /hpf (None Seen) Urine Bacteria Few /hpf (None Seen) H Urine Mucus Few (None Seen) Urine Glucose Normal mg/dL (Normal) Microbiology Microbiology Date/Time Source Procedure Growth Status 02/26/25 18:00 Pleural Fluid Gram Stain - Final Resulted 02/26/25 18:00 Pleural Fluid Body Fluid Culture - Preliminary Resulted Assessment/Plan Assessment/Plan 84-year-old male with a known history of BPH, CKD, chronic AFib on Coumadin, history of cardiac valve prosthesis presented to the hospital with the increasing shortness a breath found to have 1. Progressive Shortness of breaths/dyspnea on exertion secondary to left-sided pleural effusion 2. Left-sided pleural effusion 3. Secondary coagulopathy due to warfarin status post vitamin K subQ 4. Chronic AFib 5. History of cardiac prosthetic valve 6. BPH -repeat left thoracentesis if indicated repeat INR, IR consultation for left thoracentesis we will resume Coumadin afterwards. Plan discussed with: Patient, Son My Orders Orders - RAGHAV SORIANO MD Procedure Category Date Status Time Abdomen Limited US 02/27/25 Resulted 12:33 Date of Service: Feb 26, 2025 Billing Provider: RAGHAV SORIANO MD Common Visit Codes: NOT BILLABLE RAGHAV SORIANO MD Feb 27, 2025 17:43
--- NOTE | 2025-02-27 22:24 | DVHPN2 ---
Progress Note - Dictate Date Seen: Feb 27, 2025 Medical Necessity Reason Pt with a Central, PICC or Fol: Yes The following are medically ne: Kay Catheter Reason for kay catheter: Strict I&O Subjective Patient seen and examined at bedside. Remains on supplemental oxygen Overnight events reviewed. vital signs Vital Sign Date Time Temp Pulse Resp B/P (MAP) Pulse Ox O2 Delivery O2 Flow Rate FiO2 02/27/25 21:00 98.5 66 20 100/57 (71) 95 98.5 02/27/25 20:00 Room Air* 0 21 Total Intake and Output 02/26/25 02/26/25 02/27/25 15:00 23:00 07:00 Intake Total 850 ml 50 ml Output Total 900 ml 150 ml Balance -50 ml -100 ml medications Current Medications Medications Dose Ordered Sig/Shawna Route Start Time Stop Time Status Last Admin Dose Admin Acetaminophen 650 mg Q6HP PRN PO 02/25/25 01:30 Acetaminophen/ Hydrocodone Bitart 1 tab Q6HP PRN PO 02/25/25 01:30 Ondansetron HCl 4 mg Q4HP PRN IV 02/25/25 01:30 Nitroglycerin 0.4 mg Q5MINP PRN SL 02/25/25 01:30 Morphine Sulfate 2 mg Q30M PRN IV 02/25/25 01:30 Metoprolol Tartrate 25 mg DAILY PO 02/25/25 10:00 02/27/25 09:47 25 MG Albuterol 2.5 mg Q4HP PRN NEB 02/25/25 01:30 Ipratropium [place] 0.5 mg Q4HPRN PRN NEB 02/25/25 01:30 Tamsulosin HCl 0.4 mg DAILY PO 02/25/25 10:00 02/27/25 09:47 0.4 MG Furosemide 40 mg DAILY IV 02/27/25 10:00 02/27/25 09:47 40 MG Warfarin Sodium RX PROTOCOL PER PHARMACY PO 02/27/25 17:45 objective Gen.: Patient lying in bed in no apparent distress. On supplemental oxygen. Head: Normocephalic, atraumatic. Eyes: EOMI/PERRLA. Ears: Normal hearing. Normal anatomy. Neck/trachea: Trachea midline, supple. Nose: Normal external anatomy. Mouth: Moist mucous membranes. Chest: Decreased air entry bilaterally. No wheezing or rhonchi. Cardiovascular: Positive S1, positive S2. Regular rate and rhythm. Abdomen: Positive bowel sounds in all 4 quadrants. Soft, non-tender, non- distended. : Deferred. Rectal: Deferred. Skin: Warm, dry. Intact. Extremities: 2+ radial pulses bilaterally. No lower extremity edema. Neuro: Awake, alert, oriented x3. No gross motor or sensory deficits. Cranial nerves II through XII intact. Gait not assessed. laboratory and microbiology Laboratory Tests 02/27/25 05:26 Test 02/27/25 05:26 Range/Units Serum Glucose 96 74-106 mg/dL Assessment/Plan Impression: Acute hypoxic respiratory failure Dependence on supplemental oxygen Pleural effusion Atelectasis Dyspnea Chronic kidney disease Atrial fibrillation, on Coumadin Supra-therapeutic INR Events: Remains on supplemental oxygen, 3 LPM NC Taper O2 as tolerated Chest x-ray revealed trace right pleural effusion and moderate left pleural effusion. Left thoracentesis was performed yesterday (02/26/25) with removal of 2 L fluid from left pleural space. See separate procedure note for details. Follow up pleural fluid cultures and cytology Continue antibiotics Bronchodilators PRN. Incentive spirometry Diurese with Lasix as tolerated Monitor renal function - creatinine trending down Monitor electrolytes. Supplement as necessary. Monitor hemoglobin - stable at 8.9 g/dL Transfuse if less than 7.0 g/dL. Vitamin K held - INR is 1.31 Plan for left thoracentesis today for evacuation of pleural effusion. Labs and imaging reviewed. Rest of plan as noted below. Plan: Supplemental oxygen Titrate to keep O2 sats above 92%. Taper O2 as tolerated. Bronchodilators PRN. Incentive spirometry Diurese to euvolemia Monitor renal function d/t CKD. Monitor electrolytes. Supplement as necessary. Monitor ins and outs. DVT prophylaxis. Prognosis: Guarded given patient's multiple co-morbidities. Rest of plan per hospitalist and other consultants. Thank you, DOMONIQUE Ibrahim, for allowing me to participate in this patient's care. Further recommendations will depend on the patient's clinical course. Please do not hesitate to contact me if you have any questions or concerns. This medical document was created using an electronic medical record system with [employer] system. Although these documentations are being carefully reviewed, there may still be some phonetic and typographical changes. The errors are purely typographical, due to imperfection on the software program, and do not reflect any compromise in the patient's medical care. Plan discussed with: Patient, Other (TU Denson) LEYDA CHAND MD Feb 27, 2025 22:24
[2025-02-28] VITALS (9 sets, daily range): BP systolic 97–117; BP diastolic 51–67; PULSE 69–84; RESP 14–18; TEMP 97.8–98.2; O2SAT 95–97
[2025-02-28 05:38] LABS: Hematocrit 25.9 % (41.0-53.0); Hemoglobin 8.6 g/dL (13.5-17.5); Mean Corpuscular Hemoglobin 30.4 pg (28.0-32.0); Mean Corpuscular Volume 91.7 fL (80.0-100.0); Nucleated Red Blood Cells % 0.0 %
[2025-02-28 05:44] LABS: Potassium 4.2 mmol/L (3.5-5.1); Sodium 144 mmol/L (136-145)
[2025-02-28 05:45] LABS: Anion Gap 10 (5-15); Calcium 9.4 mg/dL (8.7-10.4); Carbon Dioxide 23 mmol/L (20-31)
[2025-02-28 05:48] LABS: Chloride 111 mmol/L (98-107)
[2025-02-28 05:49] LABS: INR 1.17 (0.9-1.15); Partial Thromboplastin Time 31.4 SEC (24.5-34.5); Prothrombin Time 12.2 sec (9.3-11.8)
[2025-02-28 05:50] LABS: BUN/Creatinine Ratio 17.7 (10.0-20.0); Glucose 95 mg/dL (74-106)
[2025-02-28 05:54] LABS: Blood Urea Nitrogen 32 mg/dL (9-23)
--- NOTE | 2025-02-28 11:30 | DVH ---
XY CHEST XRAY 1 VIEW, HISTORY: THORACENTESIS COMPARISON: XY CHEST XRAY 1 VIEW on DOS: 02/26/25, XY CHEST XRAY 1 VIEW on DOS: 02/24/25 XY CHEST XRAY 1 VIEW on DOS: 02/26/25, XY CHEST XRAY 1 VIEW on DOS: 02/24/25 TECHNICAL DATA: 1 view of the chest was obtained. FINDINGS: Lines and tubes: None Cardiomediastinal silhouette: Prominent Pulmonary vasculature: Prominent Lung expansion: normal Lung airspace: normal Lung interstitium: normal Pleura: Decreased left pleural effusion. Pneumothorax: no Bones: Unremarkable Other: no IMPRESSION: Decreased left pleural effusion. No pneumothorax seen.
--- NOTE | 2025-02-28 12:25 | DVHPN2 ---
Progress Note Date Seen: Feb 28, 2025 Medical Necessity Reason Pt with a Central, PICC or Fol: Yes The following are medically ne: Kay Catheter Reason for kay catheter: Strict I&O Subjective Other Systems: sp thora x 2 no ascites Objective vital signs Vital Sign Date Time Temp Pulse Resp B/P (MAP) Pulse Ox O2 Delivery O2 Flow Rate FiO2 02/28/25 10:02 74 104/51 02/28/25 09:00 98.2 16 95 98.2 02/28/25 07:30 Nasal Cannula* 3 32 Total Intake and Output 02/27/25 02/27/25 02/28/25 15:00 23:00 07:00 Intake Total 380 ml 300 ml Output Total 450 ml 300 ml Balance -70 ml 0 ml medications Current Medications Medications Dose Ordered Sig/Shawna Route Start Time Stop Time Status Last Admin Dose Admin Acetaminophen 650 mg Q6HP PRN PO 02/25/25 01:30 Acetaminophen/ Hydrocodone Bitart 1 tab Q6HP PRN PO 02/25/25 01:30 Ondansetron HCl 4 mg Q4HP PRN IV 02/25/25 01:30 Nitroglycerin 0.4 mg Q5MINP PRN SL 02/25/25 01:30 Morphine Sulfate 2 mg Q30M PRN IV 02/25/25 01:30 Metoprolol Tartrate 25 mg DAILY PO 02/25/25 10:00 02/28/25 10:02 25 MG Albuterol 2.5 mg Q4HP PRN NEB 02/25/25 01:30 Cancel Ipratropium [place] 0.5 mg Q4HPRN PRN NEB 02/25/25 01:30 Cancel Tamsulosin HCl 0.4 mg DAILY PO 02/25/25 10:00 02/28/25 09:46 0.4 MG Furosemide 40 mg DAILY IV 02/27/25 10:00 02/28/25 09:46 40 MG Warfarin Sodium RX PROTOCOL PER PHARMACY PO 02/27/25 17:45 Examination: GENERAL:Abnormal, HEENT:Abnormal, LUNGS:Abnormal, CVS:Abnormal, ABDOMEN:Abnormal laboratory and microbiology Laboratory Tests 02/28/25 04:50 Test 02/28/25 04:50 Range/Units Serum Glucose 95 74-106 mg/dL Microbiology Date/Time Source Procedure Growth Status 02/26/25 18:00 Pleural Fluid Gram Stain - Final Resulted 02/26/25 18:00 Pleural Fluid Body Fluid Culture - Preliminary Resulted Problem List/Assessment/Plan Problem List/Assessment/Plan anasarca large pleural effusion ascites? s/p tavr dc home with daily po lasix daily weight klor con fu cardio 4 weeks Plan discussed with: Patient My Orders My Orders Orders - AINSLEY LOPEZ MD Procedure Category Date Status Time Communication Order ORDERS 02/28/25 Transmitted 10:29 Date of Service: Feb 28, 2025 Billing Provider: AINSLEY LOPEZ MD Common Visit Codes: NOT BILLABLE AINSLEY LOPEZ MD Feb 28, 2025 12:25
[2025-02-28] MEDS ORDERED: FURO1TAB31 PO (13:43)
--- NOTE | 2025-02-28 13:55 | DVHDS2 ---
Discharge Summary Date of Admission Feb 25, 2025 at 01:23 Date of Discharge: Feb 28, 2025 Labs/Diagnostic Data: Laboratory Results Test 02/28/25 04:50 02/26/25 18:00 02/25/25 08:00 02/24/25 21:34 White Blood Count 7.6 10^3/uL (4.4-10.8) Red Blood Count 2.83 10^6/uL (4.5-5.90) Hemoglobin 8.6 g/dL (13.5-17.5) Hematocrit 25.9 % (41.0-53.0) Mean Corpuscular Volume 91.7 fL (80.0-100.0) Mean Corpuscular Hemoglobin 30.4 pg (28.0-32.0) Mean Corpuscular Hemoglobin Concent 33.2 g/dL (32.0-36.0) Red Cell Distribution Width 16.2 % (11.8-14.3) Platelet Count 191 10^3/uL (140-450) Mean Platelet Volume 9.0 fL (6.9-10.8) Neutrophils (%) (Auto) 83.8 % (37.0-80.0) Lymphocytes (%) (Auto) 8.5 % (10.0-50.0) Monocytes (%) (Auto) 5.8 % (0.0-12.0) Eosinophils (%) (Auto) 1.5 % (0.0-7.0) Basophils (%) (Auto) 0.4 % (0.0-2.0) Neutrophils # (Auto) 6.4 10 ^3/uL (1.6-8.6) Lymphocytes # (Auto) 0.7 10 ^3/uL (0.4-5.4) Monocytes # (Auto) 0.4 10 ^3/uL (0-1.3) Eosinophils # (Auto) 0.1 10 ^3/uL (0-0.8) Basophils # (Auto) 0 10 ^3/uL (0-0.2) Nucleated Red Blood Cells 0.0 % Prothrombin Time 12.2 sec (9.3-11.8) Prothrombin Time INR 1.17 (0.9-1.15) Activated Partial Thromboplast Time 31.4 SEC (24.5-34.5) Sodium Level 144 mmol/L (136-145) Potassium Level 4.2 mmol/L (3.5-5.1) Chloride Level 111 mmol/L (98-107) Carbon Dioxide Level 23 mmol/L (20-31) Anion Gap 10 (5-15) Blood Urea Nitrogen 32 mg/dL (9-23) Creatinine 1.81 mg/dL (0.700-1.30) Glomerular Filtration Rate Calc 36 mL/min (>90) BUN/Creatinine Ratio 17.7 (10.0-20.0) Serum Glucose 95 mg/dL (74-106) Calcium Level 9.4 mg/dL (8.7-10.4) Body Fluid Source Pleural fluid Body Fluid pH 8 Body Fluid WBC (Manual) 1255 CUMM (0-200) Body Fluid RBC (Manual) [id number] CUMM (0-2000) Body Fluid Mononuclear Cells 33 % Body Fluid Polymorphonuclear Cells 67 % (0-25) Urine Color Yellow (Yellow) Urine Clarity Ex.turbid (Clear) Urine pH 8.5 (5.0-9.0) Urine Specific [place] 1.019 (1.001-1.035) Urine Protein 3+ (Negative) Urine Ketones Negative (Negative) Urine Blood Negative /uL (Negative) Urine Nitrite 1+ (Negative) Urine Bilirubin Negative (Negative) Urine Urobilinogen Normal mg/dL (Negative) Urine Leukocyte Esterase 3+ /uL (Negative) Urine RBC 7 /hpf (0 - 3) Urine WBC Clumps Present /hpf (None Seen) Urine Microscopic WBC 20 /HPF (0-3) Urine Squamous Epithelial Cells Few /hpf (<5) Urine Triple Phosphate Crystals Mod /hpf (None Seen) Urine Bacteria Few /hpf (None Seen) Urine Mucus Few (None Seen) Urine Glucose Normal mg/dL (Normal) Total Bilirubin 0.8 mg/dL (0.2-1.0) Aspartate Amino Transferase (AST) 23 U/L (13-40) Alanine Aminotransferase (ALT) 10 U/L (7-40) Alkaline Phosphatase 117 U/L (46-116) B-Type Natriuretic Peptide 123.06 pg/mL (0-100) Total Protein 6.6 g/dL (5.7-8.2) Albumin 4.0 g/dL (3.2-4.8) Other Laboratory Tests 02/28/25 04:50 Brief Hx & Hospital Course: 84-year-old male with a known history of BPH, CKD, chronic AFib on Coumadin, history of cardiac valve prosthesis presented to the hospital with the increasing shortness a breath found to have progressive shortness a breath secondary to left-sided pleural effusion as well as acute CHF exacerbation. Patient's has a left-sided pleural effusion status post thoracentesis x2. Patient was resumed on Coumadin. Patient is cleared by Cardiology and Pulmonary to be discharged. Patient is being discharged under stable condition on p.o. Lasix for home. Condition at Discharge: Stable Final Diagnosis/Problems List Assessment/Plan 84-year-old male with a known history of BPH, CKD, chronic AFib on Coumadin, history of cardiac valve prosthesis presented to the hospital with the increasing shortness a breath found to have 1. Progressive Shortness of breaths/dyspnea on exertion secondary to left-sided pleural effusion 2. Left-sided pleural effusion 3. Secondary coagulopathy due to warfarin status post vitamin K subQ 4. Chronic AFib 5. History of cardiac prosthetic valve 6. BPH Discharge Disposition: Home with [facility] Discharge Will this Physician continue t: No Discharge Instruct/Medications Diet: Cardiac 2g Na,low cholest Activity: No Restrictions, As Tolerated Follow Up/Referral: Follow up with the PCP in 1-2 weeks Follow up with the Cardiology in 1-2 weeks. Medications: Resume home medications New prescription for crisis Lasix 40 mg p.o. daily. Scheduled Amlodipine Besylate (Amlodipine Besylate), 10 MG PO DAILY, (Reported) Doxazosin Mesylate (Doxazosin Mesylate), 4 MG PO DAILY, (Reported) Finasteride (Finasteride), 1 TAB PO DAILY Furosemide (Lasix), 40 MG PO DAILY Iron-Vitamin C (Iron 100/C), 1 TAB PO DAILY@BREAKFAST Lisinopril (Lisinopril), 20 MG PO DAILY, (Reported) Metoprolol Tartrate (Lopressor), 1 TAB PO DAILY, (Reported) Mupirocin (Pseudomonas Fluores (Mupirocin), 2 % NA BID Simvastatin (Simvastatin), 20 MG PO DAILY, (Reported) Tamsulosin Hcl (Flomax), 1 CAP PO DAILY Warfarin Sodium (Warfarin Sodium), 5 MG PO DAILY, (Reported) Discharge Statement: "Patient was advised to return to the ER or call 911 if any headaches, dizziness, shortness of breath, chest pain, abdominal pain, bleeding, fevers, or worsening of medical condition. Patient was counseled about treatment plan, medications, possible side effects, patientverbalized understanding. All questions were answered to the best of my ability. This discharge took greater then 30 minutes in planning, reviewing documentation, counseling the patient, and discussing with other team members." ASSESSMENT ASSESSMENT Assessment Assessment/Plan 84-year-old male with a known history of BPH, CKD, chronic AFib on Coumadin, history of cardiac valve prosthesis presented to the hospital with the increasing shortness a breath found to have 1. Progressive Shortness of breaths/dyspnea on exertion secondary to left-sided pleural effusion 2. Left-sided pleural effusion 3. Secondary coagulopathy due to warfarin status post vitamin K subQ 4. Chronic AFib 5. History of cardiac prosthetic valve 6. BPH Date of Service: Feb 28, 2025 Billing Provider: RAGHAV SORIANO MD Common Visit Codes: NOT BILLABLE RAGHAV SORIANO MD Feb 28, 2025 13:55
[2025-02-28] MEDS ORDERED: WARFARIN SODIUM 5 MG TAB PO ONE (17:00)
--- NOTE | 2025-03-01 00:02 | DVHPN2 ---
Progress Note - Dictate Date Seen: Feb 28, 2025 Medical Necessity Reason Pt with a Central, PICC or Fol: Yes The following are medically ne: Kay Catheter Reason for kay catheter: Strict I&O Subjective Patient seen and examined at bedside. Currently breathing on room air. Overnight events reviewed. vital signs Vital Sign Date Time Temp Pulse Resp B/P (MAP) Pulse Ox O2 Delivery O2 Flow Rate FiO2 02/28/25 15:42 98.2 70 16 117/67 (84) 95 98.2 02/28/25 07:30 Nasal Cannula* 3 32 medications Current Medications Medications Dose Ordered Sig/Shawna Route Start Time Stop Time Status Last Admin Dose Admin Albuterol 2.5 mg Q4HP PRN NEB 02/25/25 01:30 Cancel Ipratropium [place] 0.5 mg Q4HPRN PRN NEB 02/25/25 01:30 Cancel objective Gen.: Patient lying in bed in no apparent distress. On room air. Head: Normocephalic, atraumatic. Eyes: EOMI/PERRLA. Ears: Normal hearing. Normal anatomy. Neck/trachea: Trachea midline, supple. Nose: Normal external anatomy. Mouth: Moist mucous membranes. Chest: Decreased air entry bilaterally. No wheezing or rhonchi. Cardiovascular: Positive S1, positive S2. Regular rate and rhythm. Abdomen: Positive bowel sounds in all 4 quadrants. Soft, non-tender, non- distended. : Deferred. Rectal: Deferred. Skin: Warm, dry. Intact. Extremities: 2+ radial pulses bilaterally. No lower extremity edema. Neuro: Awake, alert, oriented x3. No gross motor or sensory deficits. Cranial nerves II through XII intact. Gait not assessed. laboratory and microbiology Laboratory Tests 02/28/25 04:50 Test 02/28/25 04:50 Range/Units Serum Glucose 95 74-106 mg/dL Assessment/Plan Impression: Acute hypoxic respiratory failure Pleural effusion Atelectasis Dyspnea Chronic kidney disease Atrial fibrillation, on Coumadin Supra-therapeutic INR Events: Currently breathing on room air. Supplemental oxygen PRN. S/p left thoracentesis on 02/26/25 with removal of 2 L fluid from left pleural space. See separate procedure note for details. Follow up pleural fluid cultures and cytology Chest x-ray reviewed; no pneumothorax. Very small right pleural effusion and left pleural effusion. If no pneumothorax or left pleural effusion, patient is stable for discharge from the pulmonary standpoint. Continue Coumadin Monitor PT/INR. Incentive spirometry Monitor hemoglobin Transfuse if less than 7.0 g/dL. Diurese as tolerated with Lasix Monitor renal function. Monitor electrolytes. Supplement as necessary. Monitor ins and outs. Follow up as outpatient for left thoracentesis within 2 weeks. Labs and imaging reviewed. Rest of plan as noted below. Plan: Supplemental oxygen PRN Titrate to keep O2 sats above 92%. Incentive spirometry Diurese to euvolemia Monitor renal function d/t CKD. Monitor electrolytes. Supplement as necessary. Monitor ins and outs. Continue Coumadin Monitor PT/INR. Follow up as outpatient for repeat left thoracentesis within 2 weeks. DVT prophylaxis. Prognosis: Guarded given patient's multiple co-morbidities. Rest of plan per hospitalist and other consultants. Thank you, DOMONIQUE Ibrahim, for allowing me to participate in this patient's care. Further recommendations will depend on the patient's clinical course. Please do not hesitate to contact me if you have any questions or concerns. This medical document was created using an electronic medical record system with [employer] dictation system. Although these documentations are being carefully reviewed, there may still be some phonetic and typographical changes. The errors are purely typographical, due to imperfection on the software program, and do not reflect any compromise in the patient's medical care. Plan discussed with: Patient, Other (TU Denson) LEYDA CHAND MD Mar 01, 2025 00:02
--- NOTE | 2025-03-01 07:18 | ECG ---
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
== END 2025-02-28 16:00 | disposition home or self-care (01) | DRG 291 ==
LOC: ER 20:10 → OVERFLOW 02-25 01:23 → TELE-CENTR 02-25 10:22
PROVIDERS: ADMIT Nurse Practitioner Family; ATTEND Nurse Practitioner Family
PROC: 0W9B3ZZ Drainage of Left Pleural Cavity, Percutaneous Approach (ICD-10-PCS; principal; 2025-02-27)
DX: I13.0 Hypertensive heart and chronic kidney disease with heart failure and stage 1 through stage 4 chronic kidney disease, or unspecified chronic kidney disease (principal); I50.21 Acute systolic (congestive) heart failure; J96.01 Acute respiratory failure with hypoxia; N17.0 Acute kidney failure with tubular necrosis; J91.8 Pleural effusion in other conditions classified elsewhere; J98.11 Atelectasis; I48.21 Permanent atrial fibrillation; T45.515A Adverse effect of anticoagulants, initial encounter; N18.9 Chronic kidney disease, unspecified; D64.9 Anemia, unspecified; E78.5 Hyperlipidemia, unspecified; I44.7 Left bundle-branch block, unspecified; N40.0 Benign prostatic hyperplasia without lower urinary tract symptoms; R79.1 Abnormal coagulation profile; Y92.89 Other specified places as the place of occurrence of the external cause; Z99.81 Dependence on supplemental oxygen; Z79.01 Long term (current) use of anticoagulants; Z79.899 Other long term (current) drug therapy; Z82.3 Family history of stroke; Z82.49 Family history of ischemic heart disease and other diseases of the circulatory system; Z87.891 Personal history of nicotine dependence; Z88.0 Allergy status to penicillin; Z95.2 Presence of prosthetic heart valve
CPT/HCPCS: 32555; 36415; 71045; 76604; 76705; 80048; 80053; 81001; 83880; 83986; 85025; 85610; 85730; 86850; 86900; 86901; 87205; 89051; 93005; 93306; G0378; J3430